=== PATIENT | female | born 1990 | race American Indian/Alaskan Native ===

== ENCOUNTER 2016-09-21 22:00 | Emergency (ER) | payer SELFPAY ==
[~2016-09-21 22:00] MED LIST: Rocuronium 50 MG/5 ML Vial IV ONE; Succinylcholine 200 MG/10 ML MDV IV ONE
[2016-09-21] MEDS ORDERED: Sodium Chloride 0.9% 1,000 ML IV ONE (22:14)
[2016-09-21] MEDS ORDERED: Naloxone 2 MG/2 ML Syringe IVPUSH ONE ×2 (22:14→22:21)
[2016-09-21 22:49] LABS: CHLORIDE,CL 112 mmol/L (101-111); SODIUM,NA 143 mmol/L (135-145)
[2016-09-21 22:52] LABS: ACETAMINOPHEN < 10
[2016-09-21] MEDS ORDERED: Midazolam 1 MG/ML 2 ML SDV ONE (22:53)
[2016-09-21] MEDS ORDERED: Potassium Chloride 10 MEQ in Premix Bag 1 BAG IV ONE (22:55)
[2016-09-21] MEDS ORDERED: Lactated Ringers 1,000 ML IV SCH (23:00)
[2016-09-21] MEDS ORDERED: MVI, Adult with Vitamin K 10 ML, Folic Acid 1 MG, Thiamine 100 MG in Lactated Ringers 1... IV SCH ×4 (23:13)
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
[2016-09-22 00:54] VITALS: BP 74/35
--- NOTE | 2016-09-22 21:59 | EKG ---
09/21/2016 - TEDDY SIMS - This 12-lead EKG shows a normal sinus rhythm with a ventricular rate of 82, normal axis, borderline prolonged QT interval. No acute ST-segment or T-wave changes. [facility] /[id number]
== END 2016-09-21 23:50 ==
LOC: DL.ED 22:00
DX: R41.82 Altered mental status, unspecified (principal); I10 Essential (primary) hypertension; F16.10 Hallucinogen abuse, uncomplicated; F10.10 Alcohol abuse, uncomplicated; F17.200 Nicotine dependence, unspecified, uncomplicated; Z88.0 Allergy status to penicillin; Z88.1 Allergy status to other antibiotic agents
CPT/HCPCS: 36415; 71010; 80053; 80305; 81001; 81025; 85025; 93005; 96365; 96367; 96374; 99291; G0480; J2310; J3411; J7030; J7120; 31500; 93010; 99285; J0330; J3490

== ENCOUNTER 2017-09-30 23:02 | Emergency (ER) | payer SELFPAY ==
[2017-09-30 23:18] VITALS: BP 104/64
[2017-09-30] MEDS ORDERED: Albuterol/Ipratropium 3.0-0.5 MG/3 ML Neb Soln NEB ONE (23:28)
[2017-09-30] MEDS ORDERED: Sodium Chloride 0.9% 1,000 ML IV ONE (23:28)
[2017-09-30] MEDS ORDERED: Acetaminophen 325 MG Tab PO ONE (23:29)
--- NOTE | 2017-09-30 23:32 | EDM.PDOC ---
ED HPI GENERAL MEDICAL PROBLEM - General Chief Complaint: Respiratory Problem Stated Complaint: BREATHING PROBLEMS NO PHONE NUMBER Time Seen by Provider: 09/30/17 23:30 Source of Information: Reports: Patient History Limitations: Reports: No Limitations - History of Present Illness INITIAL COMMENTS - FREE TEXT/NARRATIVE: 4 days h/o cough fever worse tonight with pain & sob. denies - Related Data Allergies Allergy/AdvReac Type Severity Reaction Status Date / Time amoxicillin [Amoxicillin] Allergy Unknown Rash Verified 09/30/17 23:54 penicillin G Allergy Unknown Hives Verified 09/30/17 23:54 Home Meds: Home Meds . 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 Only 1 care visit in [place] Musculoskeletal History: Reports: None Neurological History: Reports: None Psychiatric History: Reports: Addiction, Anxiety, Other (See Below) Other Psychiatric History: drug use, [facility] children [facility] Endocrine/Metabolic History: Reports: None Hematologic History: Reports: None Immunologic History: Reports: None Oncologic (Cancer) History: Reports: None Dermatologic History: Reports: Other (See Below) Other Dermatologic History: Scabs to left arm, patient states that there was been yellow drainage - Infectious Disease History Infectious Disease History: Reports: MRSA - Past Surgical History Head Surgeries/Procedures: Reports: None Female Surgical History: Reports: Section - Past Imaging History Past Imaging History: Reports: Ultrasound (01/07/2016 22 week Ultrasound EDC: 03/2016) Social & Family History - Family History HEENT: Reports: None Cardiac: Reports: Aneurysm, Heart Valve Replacement, Hypertension Respiratory: Reports: None GI: Reports: None : Reports: None OBGYN: Reports: None Musculoskeletal: Reports: None Neurological: Reports: CVA Psychiatric: Reports: None Endocrine/Metabolic: Reports: Diabetes, type II Hematologic: Reports: None Immunologic: Reports: None Dermatologic: Reports: None Oncologic: Reports: None - Tobacco Use Smoking Status *Q: Current Every Day Smoker Years of Tobacco use: 11 Packs/Tins Daily: 0.5 Used Tobacco, but Quit: No Second Hand Smoke Exposure: Yes - Caffeine Use Caffeine Use: Reports: Coffee - Alcohol Use Days Per Week of Alcohol Use: 2 Number of Drinks Per Day: 6 Total Drinks Per Week: 12 - Recreational Drug Use Recreational Drug Use: Yes Drug Use in Last 12 Months: Yes Recreational Drug Type: Reports: Methamphetamine Recreational Drug Use Frequency: Binges Recreational Drug Last Use: - - Living Situation & Occupation Living situation: Reports: Other Occupation: Unemployed ED ROS GENERAL - Review of Systems Review Of Systems: ROS reveals no pertinent complaints other than HPI. ED EXAM, GENERAL - Physical Exam Exam: See Below Exam Limited By: No Limitations General Appearance: Alert, WD/WN, Mild Distress, Other (general discomfort) Ears: Hearing Grossly Normal Throat/Mouth: Normal Voice, No Airway Compromise Head: Atraumatic Neck: Non-Tender, Full Range of Motion Respiratory/Chest: No Accessory Muscle Use, Decreased Breath Sounds, Rales, Rhonchi, Wheezing. No: Retractions, Splinting Cardiovascular: Regular Rate, Rhythm GI/Abdominal: Soft, Non-Tender Neurological: Alert, Oriented, Normal Cognition, Normal Gait, No Motor/Sensory Deficits Psychiatric: Flat Affect Skin Exam: Warm, Dry, Normal Color Lymphatic: No Adenopathy Course - Vital Signs Last Recorded V/S: Last Vital Signs Temp 39.6 C H 09/30/17 23:17 Pulse 145 H 09/30/17 23:17 Resp 24 H 09/30/17 23:17 BP 104/64 09/30/17 23:17 Pulse Ox 93 L 09/30/17 23:17 - Orders/Labs/Meds Orders: Active Orders 24 hr Category Date Time Status RT Aerosol Therapy [RC] ASDIRECTED Care 09/30/17 23:29 Active Chest 2V [CR] Urgent Exams 09/30/17 23:30 Taken CULTURE BLOOD [BC] Stat Lab 09/30/17 23:40 Received Labs: Laboratory Tests 09/30/17 09/30/17 09/30/17 Range/Units 23:40 23:40 23:40 WBC 19.6 H (5.0-10.0) 10^3/uL RBC 4.40 (4.2-5.4) 10^6/uL Hgb 12.9 (12.0-16.0) g/dL Hct 38.4 (37.0-47.0) % MCV 87.3 D (80-100) fL MCH 29.3 (27.0-34.0) pg MCHC 33.6 (33.0-35.0) g/dL Plt Count 287 (150-450) 10^3/uL Neut % (Auto) 79.6 H (42.2-75.2) % Lymph % (Auto) 10.4 L (20.5-50.1) % [place] % (Auto) 9.5 H (2-8) % Eos % (Auto) 0.3 L (1.0-3.0) % Baso % (Auto) 0.2 (0.0-1.0) % Sodium 134 L (135-145) mmol/L Potassium 3.4 L (3.6-5.0) mmol/L Chloride 106 (101-111) mmol/L Carbon Dioxide 21.0 (21.0-31.0) mmol/L Anion Gap 10.4 BUN 10 (7-18) mg/dL Creatinine 0.9 (0.6-1.3) mg/dL Est Cr Clr Drug Dosing 94.72 mL/min Estimated GFR (MDRD) > 60 BUN/Creatinine Ratio 11.11 Glucose 108 H (74-105) mg/dL Lactic Acid 1.7 (0.5-2.2) mmol/L Calcium 8.4 (8.4-10.2) mg/dl Total Bilirubin 0.8 (0.2-1.0) mg/dL AST 26 (10-42) IU/L ALT 27 (10-60) IU/L Alkaline Phosphatase 64 (42-121) IU/L Total Protein 7.8 (6.7-8.2) g/dl Albumin 3.8 (3.2-5.5) g/dl Globulin 4.0 Albumin/Globulin Ratio 0.95 Meds: Medications Discontinued Medications Generic Name Dose Route Start Last Admin Trade Name Freq PRN Reason Stop Dose Admin Acetaminophen 325 mg 09/30/17 23:29 09/30/17 23:46 Tylenol PO 09/30/17 23:30 325 mg NOW ONE Administration Albuterol/Ipratropium 3 ml 09/30/17 23:28 09/30/17 23:47 Duoneb 3.0-0.5 Mg/3 Ml NEB 09/30/17 23:29 3 ml ONETIME ONE Administration Ceftriaxone Sodium 1 gm 10/01/17 00:14 10/01/17 00:19 Rocephin IVPUSH 10/01/17 00:15 1 gm ONETIME ONE Administration Sodium Chloride 1,000 mls @ 999 mls/hr 09/30/17 23:28 09/30/17 23:45 Normal Saline IV 10/01/17 00:28 999 mls/hr .BOLUS ONE Administration Lorazepam 2 mg 10/01/17 00:22 10/01/17 00:30 Ativan IM 10/01/17 00:23 2 mg ONETIME ONE Administration - Re-Assessments/Exams Free Text/Narrative Re-Assessment/Exam: 10/01/17 00:40 results discussed with pt who is feeling better s/p IV + roceph + ativan Departure - Departure Time of Disposition: 00:40 Disposition: Home, Self-Care 01 Condition: Good Clinical Impression: Bronchospasm with bronchitis, acute - Discharge Information Instructions: Acute Bronchitis, Adult, [id number] Forms: ED Department Discharge Additional Instructions: 1) use neb 3 times daily for cough and wheeze 2) don't sleep flat at night 3) follow up at clinic rx given; keflex 250mg qid x 40 albuterol 2.5mg solution tid prn - My Orders Last 24 Hours: My Active Orders 09/30/17 23:29 RT Aerosol Therapy [RC] ASDIRECTED 09/30/17 23:30 Chest 2V [CR] Urgent 09/30/17 23:40 CULTURE BLOOD [BC] Stat - Assessment/Plan Last 24 Hours: My Active Orders 09/30/17 23:29 RT Aerosol Therapy [RC] ASDIRECTED 09/30/17 23:30 Chest 2V [CR] Urgent 09/30/17 23:40 CULTURE BLOOD [BC] Stat
[2017-10-01 00:07] LABS: CHLORIDE,CL 106 mmol/L (101-111); SODIUM,NA 134 mmol/L (135-145)
[2017-10-01] MEDS ORDERED: cefTRIAXone 1 GM Vial IVPUSH ONE (00:14)
[2017-10-01] MEDS ORDERED: LORazepam 2 MG/ML Syringe IM ONE (00:22)
== END 2017-10-01 00:49 | disposition home or self-care (01) ==
LOC: DL.ED 23:02
DX: J20.9 Acute bronchitis, unspecified (principal); I10 Essential (primary) hypertension; F17.210 Nicotine dependence, cigarettes, uncomplicated; Z88.1 Allergy status to other antibiotic agents; Z88.0 Allergy status to penicillin
CPT/HCPCS: 36415; 71046; 80053; 83605; 85025; 87040; 94640; 96361; 96372; 96374; 99284; A9270; J0696; J2060; J7030

== ENCOUNTER 2019-02-13 18:29 | Emergency (ER) | payer SELFPAY ==
[2019-02-13] MEDS ORDERED: LORazepam 2 MG/ML Syringe IVPUSH ONE ×2 (18:53→19:22)
[2019-02-13] MEDS ORDERED: Sodium Chloride 0.9% 1,000 ML IV ONE ×2 (19:23→20:50)
[2019-02-13 19:31] LABS: ANION GAP 18.9; CHLORIDE,CL 104 mmol/L (101-111); SODIUM,NA 140 mmol/L (135-145)
[2019-02-13 19:32] LABS: ACETAMINOPHEN < 10.0 ug/mL
[2019-02-13] MEDS ORDERED: diphenhydrAMINE 50 MG/ML SDV IVPUSH ONE ×2 (20:05→20:14)
[2019-02-13] MEDS ORDERED: Potassium Chloride 10 MEQ in Premix Bag 1 BAG IV ONE (20:50)
[2019-02-13] MEDS ORDERED: Haloperidol Lactate 5 MG/ML SDV IVPUSH ONE (20:50)
[2019-02-13] MEDS ORDERED: Sodium Chloride 0.9% 1,000 ML IV SCH (22:00)
[2019-02-13] MEDS ORDERED: 50% Dextrose in Water 50 ML Syringe IVPUSH ONE (22:11)
[2019-02-13 22:55] VITALS: BP 84/53; PULSE 106
--- NOTE | 2019-02-13 22:55 | EDM.PDOC ---
ED HPI GENERAL MEDICAL PROBLEM - General Chief Complaint: Drug or Alcohol Abuse Stated Complaint: POSSIBLE OVERDOSE ON METH, DELUSIONS Time Seen by Provider: 02/13/19 19:00 Source of Information: Reports: Patient, Family, RN History Limitations: Reports: Altered Mental Status, Intoxication, Uncooperative - History of Present Illness INITIAL COMMENTS - FREE TEXT/NARRATIVE: ED with family report patient using meth, patient states last use 4-5 days prior , reports regular IV user and is hep c positive. Patient has been staying with brother last couple of days. Reports patent has been extremely paranoid and hallucinating, Vomited a couple of times. Has not eaten or drank anything except few drinks today to try and calm self. Patient notes regular IV meth user and never had anything like this. Patient is actively hallucinating, paranoid, Is redirectable at times. Appears to recognize at times and verbalizethat she is seeing things but that they are not real . - Related Data Allergies Allergy/AdvReac Type Severity Reaction Status Date / Time amoxicillin [Amoxicillin] Allergy Unknown Rash Verified 02/13/19 18:40 penicillin G Allergy Unknown Hives Verified 02/13/19 18:40 Home Meds: Home Meds . 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 Only 1 care visit in [place] Musculoskeletal History: Reports: None Neurological History: Reports: None Psychiatric History: Reports: Addiction, Anxiety, Other (See Below) Other Psychiatric History: drug use, 3 children [facility] Endocrine/Metabolic History: Reports: None Hematologic History: Reports: None Immunologic History: Reports: None Oncologic (Cancer) History: Reports: None Dermatologic History: Reports: Other (See Below) Other Dermatologic History: Scabs to left arm, patient states that there was been yellow drainage - Infectious Disease History Infectious Disease History: Reports: MRSA - Past Surgical History Head Surgeries/Procedures: Reports: None Female Surgical History: Reports: Section - Past Imaging History Past Imaging History: Reports: Ultrasound (01/07/2016 22 week Ultrasound EDC: 03/2016) Social & Family History - Family History HEENT: Reports: None Cardiac: Reports: Aneurysm, Heart Valve Replacement, Hypertension Respiratory: Reports: None GI: Reports: None : Reports: None OBGYN: Reports: None Musculoskeletal: Reports: None Neurological: Reports: CVA Psychiatric: Reports: None Endocrine/Metabolic: Reports: Diabetes, type II Hematologic: Reports: None Immunologic: Reports: None Dermatologic: Reports: None Oncologic: Reports: None - Tobacco Use Smoking Status *Q: Never Smoker - Caffeine Use Caffeine Use: Reports: Coffee - Recreational Drug Use Recreational Drug Use: Yes Drug Use in Last 12 Months: Yes Recreational Drug Type: Reports: Methamphetamine - Living Situation & Occupation Living situation: Reports: Other Occupation: Unemployed ED ROS GENERAL - Review of Systems Review Of Systems: ROS reveals no pertinent complaints other than HPI. - Physical Exam Exam: See Below Exam Limited By: No Limitations General Appearance: Alert, Anxious, Moderate Distress Eye Exam: Bilateral Eye: EOMI Ears: Normal External Exam Nose: Normal Inspection Throat/Mouth: No Airway Compromise. No: Normal Lips (dry), Normal Oropharynx Head Exam: Atraumatic, Normocephalic. No: Facial Ecchymosis Neck: Normal Inspection Respiratory/Chest: No Respiratory Distress, Lungs Clear, Normal Breath Sounds Cardiovascular: Normal Peripheral Pulses, Regular Rate, Rhythm, Tachycardia GI/Abdominal: Normal Bowel Sounds, Soft, Non-Tender. No: Distended, Guarding, Abnormal Bowel Sounds Neuro Exam (Abbreviated): Alert, Inattentive. No: Oriented Back Exam: Normal Inspection, Full Range of Motion Extremities: Normal Inspection, Normal Range of Motion Skin Exam: Warm, Normal Color, Diaphoretic, Tattoo(s), Other (track ro, scattered forearms, anticubitla and forefeeet). No: Rash Course - Vital Signs Last Recorded V/S: Last Vital Signs Temp 98.0 F 02/13/19 22:50 Pulse 106 H 02/13/19 22:50 Resp 16 02/13/19 22:50 BP 84/53 L 02/13/19 22:50 Pulse Ox 99 02/13/19 22:50 - Orders/Labs/Meds Orders: Active Orders 24 hr Category Date Time Status Glucose [Blood Glucose Check, Bedside] [RC] ONETIME Care 02/13/19 22:02 Active Labs: Laboratory Tests 02/13/19 02/13/19 02/13/19 Range/Units 18:55 18:55 18:55 WBC 10.0 (5.0-10.0) 10^3/uL RBC 4.85 (4.2-5.4) 10^6/uL Hgb 14.1 (12.0-16.0) g/dL Hct 42.2 (37.0-47.0) % MCV 87.0 (80-100) fL MCH 29.1 (27.0-34.0) pg MCHC 33.4 (33.0-35.0) g/dL Plt Count 302 (150-450) 10^3/uL Neut % (Auto) 59.6 (42.2-75.2) % Lymph % (Auto) 29.9 (20.5-50.1) % [place] % (Auto) 9.3 H (2-8) % Eos % (Auto) 0.9 L (1.0-3.0) % Baso % (Auto) 0.3 (0.0-1.0) % Sodium 140 (135-145) mmol/L Potassium 2.9 L (3.6-5.0) mmol/L Chloride 104 (101-111) mmol/L Carbon Dioxide 20.0 L (21.0-31.0) mmol/L Anion Gap 18.9 BUN 29 H (7-18) mg/dL Creatinine 1.5 H (0.6-1.3) mg/dL Est Cr Clr Drug Dosing TNP Estimated GFR (MDRD) 41 BUN/Creatinine Ratio 19.33 Glucose 77 (74-105) mg/dL POC Glucose (70-105) mg/dl Calcium 9.7 (8.4-10.2) mg/dl Total Bilirubin 1.2 H (0.2-1.0) mg/dL AST 66 H (10-42) IU/L ALT 61 H (10-60) IU/L Alkaline Phosphatase 53 (42-121) IU/L Total Protein 8.8 H (6.7-8.2) g/dl Albumin 4.6 (3.2-5.5) g/dl Globulin 4.2 Albumin/Globulin Ratio 1.10 Amylase 73 (28-100) U/L Lipase 62 H (22-51) U/L HCG, Qual Negative Urine Color (YELLOW) Urine Appearance (CLEAR) Urine pH (5.0-9.0) Ur Specific [place] (1.005-1.030) Urine Protein (NEGATIVE) Urine Glucose (UA) (NEGATIVE) Urine Ketones (NEGATIVE) Urine Occult Blood (NEGATIVE) Urine Nitrite (NEGATIVE) Urine Bilirubin (NEGATIVE) Urine Urobilinogen (0.2-1.0) mg/dL Ur Leukocyte Esterase (NEGATIVE) Urine RBC /HPF Urine WBC (0-5/HPF) /HPF Ur Epithelial Cells (NOT SEEN) /HPF Urine Bacteria (0-FEW/HPF) /HPF Hyaline Casts (NOT SEEN) /LPF Urine Mucus (NOT SEEN) /LPF Salicylates < 4.0 mg/dL Urine Opiates Screen (NEGATIVE) Ur Oxycodone Screen (NEGATIVE) Urine Methadone Screen (NEGATIVE) Acetaminophen < 10.0 ug/mL Ur Barbiturates Screen (NEGATIVE) U Tricyclic Antidepress (NEGATIVE) Ur Phencyclidine Scrn (NEGATIVE) Ur Amphetamine Screen (NEGATIVE) U Methamphetamines Scrn (NEGATIVE) Urine MDMA Screen (NEGATIVE) U Benzodiazepines Scrn (NEGATIVE) Urine Cocaine Screen (NEGATIVE) U Marijuana (THC) Screen (NEGATIVE) Ethyl Alcohol 212 mg/dL 02/13/19 02/13/19 02/13/19 Range/Units 21:09 21:09 22:10 WBC (5.0-10.0) 10^3/uL RBC (4.2-5.4) 10^6/uL Hgb (12.0-16.0) g/dL Hct (37.0-47.0) % MCV (80-100) fL MCH (27.0-34.0) pg MCHC (33.0-35.0) g/dL Plt Count (150-450) 10^3/uL Neut % (Auto) (42.2-75.2) % Lymph % (Auto) (20.5-50.1) % [place] % (Auto) (2-8) % Eos % (Auto) (1.0-3.0) % Baso % (Auto) (0.0-1.0) % Sodium (135-145) mmol/L Potassium (3.6-5.0) mmol/L Chloride (101-111) mmol/L Carbon Dioxide (21.0-31.0) mmol/L Anion Gap BUN (7-18) mg/dL Creatinine (0.6-1.3) mg/dL Est Cr Clr Drug Dosing Estimated GFR (MDRD) BUN/Creatinine Ratio Glucose (74-105) mg/dL POC Glucose 57 L (70-105) mg/dl Calcium (8.4-10.2) mg/dl Total Bilirubin (0.2-1.0) mg/dL AST (10-42) IU/L ALT (10-60) IU/L Alkaline Phosphatase (42-121) IU/L Total Protein (6.7-8.2) g/dl Albumin (3.2-5.5) g/dl Globulin Albumin/Globulin Ratio Amylase (28-100) U/L Lipase (22-51) U/L HCG, Qual Urine Color Dark yellow (YELLOW) Urine Appearance Clear (CLEAR) Urine pH 5.5 (5.0-9.0) Ur Specific [place] >= 1.030 (1.005-1.030) Urine Protein 30 H (NEGATIVE) Urine Glucose (UA) Negative (NEGATIVE) Urine Ketones 40 H (NEGATIVE) Urine Occult Blood Negative (NEGATIVE) Urine Nitrite Negative (NEGATIVE) Urine Bilirubin Moderate H (NEGATIVE) Urine Urobilinogen 2.0 H (0.2-1.0) mg/dL Ur Leukocyte Esterase Negative (NEGATIVE) Urine RBC 0-5 /HPF Urine WBC 0-5 (0-5/HPF) /HPF Ur Epithelial Cells Few (NOT SEEN) /HPF Urine Bacteria Moderate H (0-FEW/HPF) /HPF Hyaline Casts Moderate H (NOT SEEN) /LPF Urine Mucus Many H (NOT SEEN) /LPF Salicylates mg/dL Urine Opiates Screen Negative (NEGATIVE) Ur Oxycodone Screen Negative (NEGATIVE) Urine Methadone Screen Negative (NEGATIVE) Acetaminophen ug/mL Ur Barbiturates Screen Negative (NEGATIVE) U Tricyclic Antidepress Negative (NEGATIVE) Ur Phencyclidine Scrn Negative (NEGATIVE) Ur Amphetamine Screen Positive H (NEGATIVE) U Methamphetamines Scrn Positive H (NEGATIVE) Urine MDMA Screen Positive H (NEGATIVE) U Benzodiazepines Scrn Negative (NEGATIVE) Urine Cocaine Screen Negative (NEGATIVE) U Marijuana (THC) Screen Negative (NEGATIVE) Ethyl Alcohol mg/dL 09/18/19 Range/Units 22:42 WBC (5.0-10.0) 10^3/uL RBC (4.2-5.4) 10^6/uL Hgb (12.0-16.0) g/dL Hct (37.0-47.0) % MCV (80-100) fL MCH (27.0-34.0) pg MCHC (33.0-35.0) g/dL Plt Count (150-450) 10^3/uL Neut % (Auto) (42.2-75.2) % Lymph % (Auto) (20.5-50.1) % [place] % (Auto) (2-8) % Eos % (Auto) (1.0-3.0) % Baso % (Auto) (0.0-1.0) % Sodium (135-145) mmol/L Potassium (3.6-5.0) mmol/L Chloride (101-111) mmol/L Carbon Dioxide (21.0-31.0) mmol/L Anion Gap BUN (7-18) mg/dL Creatinine (0.6-1.3) mg/dL Est Cr Clr Drug Dosing Estimated GFR (MDRD) BUN/Creatinine Ratio Glucose (74-105) mg/dL POC Glucose 90 (70-105) mg/dl Calcium (8.4-10.2) mg/dl Total Bilirubin (0.2-1.0) mg/dL AST (10-42) IU/L ALT (10-60) IU/L Alkaline Phosphatase (42-121) IU/L Total Protein (6.7-8.2) g/dl Albumin (3.2-5.5) g/dl Globulin Albumin/Globulin Ratio Amylase (28-100) U/L Lipase (22-51) U/L HCG, Qual Urine Color (YELLOW) Urine Appearance (CLEAR) Urine pH (5.0-9.0) Ur Specific [place] (1.005-1.030) Urine Protein (NEGATIVE) Urine Glucose (UA) (NEGATIVE) Urine Ketones (NEGATIVE) Urine Occult Blood (NEGATIVE) Urine Nitrite (NEGATIVE) Urine Bilirubin (NEGATIVE) Urine Urobilinogen (0.2-1.0) mg/dL Ur Leukocyte Esterase (NEGATIVE) Urine RBC /HPF Urine WBC (0-5/HPF) /HPF Ur Epithelial Cells (NOT SEEN) /HPF Urine Bacteria (0-FEW/HPF) /HPF Hyaline Casts (NOT SEEN) /LPF Urine Mucus (NOT SEEN) /LPF Salicylates mg/dL Urine Opiates Screen (NEGATIVE) Ur Oxycodone Screen (NEGATIVE) Urine Methadone Screen (NEGATIVE) Acetaminophen ug/mL Ur Barbiturates Screen (NEGATIVE) U Tricyclic Antidepress (NEGATIVE) Ur Phencyclidine Scrn (NEGATIVE) Ur Amphetamine Screen (NEGATIVE) U Methamphetamines Scrn (NEGATIVE) Urine MDMA Screen (NEGATIVE) U Benzodiazepines Scrn (NEGATIVE) Urine Cocaine Screen (NEGATIVE) U Marijuana (THC) Screen (NEGATIVE) Ethyl Alcohol mg/dL Meds: Medications Discontinued Medications Generic Name Dose Route Start Last Admin Trade Name Freq PRN Reason Stop Dose Admin Dextrose/Water 50 ml 02/13/19 22:11 02/13/19 22:14 Dextrose 50% In Water IVPUSH 02/13/19 22:12 50 ml ONETIME ONE Administration Diphenhydramine HCl 50 mg 02/13/19 20:05 02/13/19 22:15 Benadryl IVPUSH 02/13/19 20:06 Not Given ONETIME ONE Diphenhydramine HCl 25 mg 02/13/19 20:14 02/13/19 20:33 Benadryl IVPUSH 02/13/19 20:15 25 mg ONETIME ONE Administration Haloperidol Lactate 2 mg 02/13/19 20:50 02/13/19 21:08 Haldol IVPUSH 02/13/19 20:51 2 mg ONETIME ONE Administration Sodium Chloride 1,000 mls @ 999 mls/hr 02/13/19 19:23 02/13/19 20:30 Normal Saline IV 02/13/19 20:23 999 mls/hr .BOLUS ONE Administration Potassium Chloride 10 meq/ 100 mls @ 100 mls/hr 02/13/19 20:50 02/13/19 21:00 Premix IV 02/13/19 21:49 100 mls/hr ONETIME ONE Administration Sodium Chloride 1,000 mls @ 999 mls/hr 02/13/19 20:50 02/13/19 21:13 Normal Saline IV 02/13/19 21:50 999 mls/hr .BOLUS ONE Administration Sodium Chloride 1,000 mls @ 100 mls/hr 02/13/19 22:00 02/13/19 22:08 Normal Saline IV 100 mls/hr ASDIRECTED DONY Administration Lorazepam 1 mg 02/13/19 18:53 02/13/19 19:11 Ativan IVPUSH 02/13/19 18:54 1 mg ONETIME ONE Administration Lorazepam 2 mg 02/13/19 19:22 02/13/19 19:33 Ativan IVPUSH 02/13/19 19:23 2 mg ONETIME ONE Administration - Re-Assessments/Exams Free Text/Narrative Re-Assessment/Exam: Patient agitated thrashing on arrival paranoid, hallucinating, seeing people, animals trying to open absent dooprs, picking at air pulling up covers not present. At times able to redirect. At times will follow simple commands, Yelling. Minimal improvement with Ativan, Remains alert , startles with minimal sound ortactile stimulation. Followed with Benadryl and Haldol. Hypotension following Haldol, HR improved, O2 sats maintained greater than 95. Dozing, arouses with touch, thrashes around on bed yelling, Bp resumes mid 90"s. / systolic Departure - Departure Time of Disposition: 02:00 Disposition: DC/Tfer to Acute Hospital 02 Condition: Good Clinical Impression: Drug abuse, Methamphetamine abuse, Intoxication, Hallucination, drug-induced - Discharge Information *PRESCRIPTION DRUG MONITORING PROGRAM REVIEWED*: No *COPY OF PRESCRIPTION DRUG MONITORING REPORT IN PATIENT YASMEEN: No Referrals: PCP,Unknown [Primary Care Provider] - Forms: ED Department Discharge - My Orders Last 24 Hours: My Active Orders 02/13/19 22:02 Glucose [Blood Glucose Check, Bedside] [RC] ONETIME - Assessment/Plan Last 24 Hours: My Active Orders 02/13/19 22:02 Glucose [Blood Glucose Check, Bedside] [RC] ONETIME
== END 2019-02-13 23:05 ==
LOC: DL.ED 18:29
DX: F15.129 Other stimulant abuse with intoxication, unspecified (principal); R44.3 Hallucinations, unspecified; I10 Essential (primary) hypertension; Z88.1 Allergy status to other antibiotic agents; Z88.0 Allergy status to penicillin
CPT/HCPCS: 36415; 51701; 80053; 80305; 80320; 80329; 81001; 82150; 82962; 83690; 84703; 85025; 96361; 96365; 96375; 99285; J1200; J1630; J2060; J3480; J7030; G0480; J7060

== ENCOUNTER 2019-12-29 15:38 | Emergency (ER) | payer MEDICAID, OTHER ==
[2019-12-29 16:42] VITALS: BP 134/102; PULSE 107
--- NOTE | 2019-12-29 17:52 | CR ---
PROCEDURE INFORMATION: Exam: XR Chest, 1 View Exam date and time: 12/29/2019 5:41 PM Age: 29 years old Clinical indication: Other: Chest pain TECHNIQUE: Imaging protocol: XR of the chest Views: 1 view. COMPARISON: CR Chest 2V 09/30/2017 11:33 PM FINDINGS: Lungs: Unremarkable. No consolidation. Pleural space: Unremarkable. No pleural effusion. No pneumothorax. Heart/Mediastinum: Unremarkable. No cardiomegaly. Bones/joints: Unremarkable. IMPRESSION: No acute findings.
[2019-12-29 18:50] LABS: ANION GAP 8.8 mEq/L (7-13); CHLORIDE,CL 101 mmol/L (98-107)
[2019-12-29 18:51] LABS: SODIUM,NA 134 mmol/L (136-145)
--- NOTE | 2019-12-29 18:53 | EDM.PDOC ---
Scribed by Belia Vines 12/29/19 [id number] for Giselle Davidson MD ED HPI GENERAL MEDICAL PROBLEM - General Chief Complaint: Chest Pain Stated Complaint: CHEST HURTS HARDLEY MOVE Time Seen by Provider: 12/29/19 17:31 Source of Information: Reports: Patient, RN, RN Notes Reviewed, Other History Limitations: Reports: No Limitations - History of Present Illness INITIAL COMMENTS - FREE TEXT/NARRATIVE: Patient presents to ED by POV stating that chest hurts that started last night. It is no better than before. It is worse with moving. Patient was laying down when it started then worse overnight. She has 10/10 pain with no radiation. She feels achy. Fever a few days ago with no cough or shortness of breath. She smokes half a pack a day, last drink 1 month ago and last meth use was a few days ago. Onset: Gradual Duration: Getting Worse Location: Reports: Chest Quality: Reports: Ache Severity: Moderate Improves with: Reports: None Worsens with: Reports: None Associated Symptoms: Reports: No Other Symptoms chest Pain Score (Numeric/FACES): 9 - Related Data Allergies Allergy/AdvReac Type Severity Reaction Status Date / Time amoxicillin [Amoxicillin] Allergy Unknown Rash Verified 12/29/19 17:42 penicillin G Allergy Unknown Hives Verified 12/29/19 17:42 Home Meds: Home Meds . 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 Only 1 care visit in [place] Musculoskeletal History: Reports: None Neurological History: Reports: None Psychiatric History: Reports: Addiction, Anxiety, Other (See Below) Other Psychiatric History: drug use, 3 children in [facility] Endocrine/Metabolic History: Reports: None Hematologic History: Reports: None Immunologic History: Reports: None Oncologic (Cancer) History: Reports: None Dermatologic History: Reports: Other (See Below) Other Dermatologic History: scabs to bilateral ACs from iv drug use - Infectious Disease History Infectious Disease History: Reports: Herpes - Past Surgical History Head Surgeries/Procedures: Reports: None Female Surgical History: Reports: Section - Past Imaging History Past Imaging History: Reports: Ultrasound (01/07/2016 22 week Ultrasound EDC: 05/08/2016) Social & Family History - Family History Family Medical History: Noncontributory HEENT: Reports: None Cardiac: Reports: Aneurysm, Heart Valve Replacement, Hypertension Respiratory: Reports: None GI: Reports: None : Reports: None OBGYN: Reports: None Musculoskeletal: Reports: None Neurological: Reports: CVA Psychiatric: Reports: None Endocrine/Metabolic: Reports: Diabetes, type II Hematologic: Reports: None Immunologic: Reports: None Dermatologic: Reports: None Oncologic: Reports: None - Tobacco Use Smoking Status *Q: Current Every Day Smoker Years of Tobacco use: 15 Packs/Tins Daily: 0.5 - Caffeine Use Caffeine Use: Reports: Coffee, Soda - Recreational Drug Use Recreational Drug Use: Yes Recreational Drug Type: Reports: Methamphetamine - Living Situation & Occupation Living situation: Reports: Other Occupation: Unemployed ED ROS GENERAL - Review of Systems Review Of Systems: Comprehensive ROS is negative, except as noted in HPI. ED EXAM, GENERAL - Physical Exam Exam: See Below Exam Limited By: No Limitations General Appearance: Alert, WD/WN, No Apparent Distress Head: Atraumatic, Normocephalic Respiratory/Chest: No Respiratory Distress, Lungs Clear, Normal Breath Sounds, No Accessory Muscle Use, Chest Non-Tender Cardiovascular: Normal Peripheral Pulses, Regular Rate, Rhythm, No Edema, No Gallop, No JVD, No Murmur, No Rub GI/Abdominal: Normal Bowel Sounds, Soft, Non-Tender, No Organomegaly, No Distention, No Abnormal Bruit, No Mass Back Exam: Normal Inspection, Full Range of Motion Extremities: Normal Inspection, Normal Range of Motion, Non-Tender, Normal Capillary Refill, No Pedal Edema Neurological: Alert, Oriented, CN II-XII Intact, Normal Cognition, Normal Gait, Normal Reflexes, No Motor/Sensory Deficits Psychiatric: Anxious Skin Exam: Warm, Dry, Intact, Normal Color, No Rash Course - Vital Signs Last Recorded V/S: Last Vital Signs Temp 98.2 F 12/29/19 16:37 Pulse 107 H 12/29/19 16:37 Resp 20 12/29/19 16:37 BP 134/102 H 12/29/19 16:37 Pulse Ox 100 12/29/19 16:37 - Orders/Labs/Meds Orders: Active Orders 24 hr Category Date Time Status EKG 12 Lead [EKG Documentation Completion] [RC] URGENT Care 12/29/19 16:22 Active COMPREHENSIVE METABOLIC PN,CMP [CHEM] Stat Lab 12/29/19 17:53 Received DRUG SCREEN, URINE [URCHEM] Stat Lab 12/29/19 17:36 Ordered ETOH [ETHANOL BLOOD MEDICAL] [CHEM] Stat Lab 12/29/19 17:53 Received LIPASE [CHEM] Stat Lab 12/29/19 17:53 Received TROPONIN I [CHEM] Stat Lab 12/29/19 17:53 Received Labs: Laboratory Tests 12/29/19 Range/Units 17:53 WBC 7.7 (5.0-10.0) 10^3/uL RBC 5.01 (4.2-5.4) 10^6/uL Hgb 15.2 (12.0-16.0) g/dL Hct 44.5 (37.0-47.0) % MCV 88.8 (80-100) fL MCH 30.3 (27.0-34.0) pg MCHC 34.2 (33.0-35.0) g/dL Plt Count 192 D (150-450) 10^3/uL Neut % (Auto) 66.8 (42.2-75.2) % Lymph % (Auto) 19.8 L (20.5-50.1) % [place] % (Auto) 12.3 H (2-8) % Eos % (Auto) 0.8 L (1.0-3.0) % Baso % (Auto) 0.3 (0.0-1.0) % - Radiology Interpretation Free Text/Narrative:: Chest x-ray: No acute findings. See rad report. Departure - Departure Time of Disposition: 18:52 Disposition: Home, Self-Care 01 Condition: Good Clinical Impression: Drug use Forms: ED Department Discharge Sepsis Event Note (ED) - Evaluation Sepsis Screening Result: No Definite Risk - Focused Exam Vital Signs: Vital Signs Temp Pulse Resp BP Pulse Ox 12/29/19 16:37 98.2 F 107 H 20 134/102 H 100 - My Orders Last 24 Hours: My Active Orders 12/29/19 16:22 EKG 12 Lead [EKG Documentation Completion] [RC] URGENT 12/29/19 17:36 DRUG SCREEN, URINE [URCHEM] Stat 12/29/19 17:53 COMPREHENSIVE METABOLIC PN,CMP [CHEM] Stat ETOH [ETHANOL BLOOD MEDICAL] [CHEM] Stat LIPASE [CHEM] Stat TROPONIN I [CHEM] Stat - Assessment/Plan Last 24 Hours: My Active Orders 12/29/19 16:22 EKG 12 Lead [EKG Documentation Completion] [RC] URGENT 12/29/19 17:36 DRUG SCREEN, URINE [URCHEM] Stat 12/29/19 17:53 COMPREHENSIVE METABOLIC PN,CMP [CHEM] Stat ETOH [ETHANOL BLOOD MEDICAL] [CHEM] Stat LIPASE [CHEM] Stat TROPONIN I [CHEM] Stat I have read and agree with the documentation that has been completed regarding this visit. By signing this record, I attest that the documentation was completed in my physical presence and is an accurate record of the encounter.
== END 2019-12-29 19:20 | disposition home or self-care (01) ==
LOC: DL.ED 15:38
DX: F19.90 Other psychoactive substance use, unspecified, uncomplicated (principal); R07.9 Chest pain, unspecified; I10 Essential (primary) hypertension; F17.210 Nicotine dependence, cigarettes, uncomplicated; Z88.0 Allergy status to penicillin; Z88.1 Allergy status to other antibiotic agents; Z98.890 Other specified postprocedural states
CPT/HCPCS: 36415; 71045; 80053; 80307; 83690; 84484; 85025; 93005; 99285-25

== ENCOUNTER 2019-12-30 13:19 | Observation (INO) | payer MEDICAID ==
--- NOTE | 2019-12-30 13:32 | EDM.PDOC ---
ED HPI GENERAL MEDICAL PROBLEM - General Chief Complaint: Chest Pain Stated Complaint: CHEST HURTS Time Seen by Provider: 12/30/19 13:28 Source of Information: Reports: Patient, Old Records, RN, RN Notes Reviewed History Limitations: Reports: Intoxication - History of Present Illness INITIAL COMMENTS - FREE TEXT/NARRATIVE: Pt presents to ER from home by POV with c/o of chest pain x3 days. Pt was seen here yesterday for the same complaint, and was d/c'd home by Dr. Davidson. Today pt states that she thinks she could have a blood clot in her lungs and wants to be recheck. Pt states she has been feeling short of breath and feverish. Denies N/V, cough, or sore throat. Duration: Day(s): (3), Constant Location: Reports: Chest Quality: Reports: Ache, Same as Previous Episode Severity: Moderate Improves with: Reports: None Worsens with: Reports: None Associated Symptoms: Reports: No Other Symptoms Left Chest Pain Score (Numeric/FACES): 10 - Related Data Allergies Allergy/AdvReac Type Severity Reaction Status Date / Time amoxicillin [Amoxicillin] Allergy Unknown Rash Verified 12/30/19 13:33 penicillin G Allergy Unknown Hives Verified 12/30/19 13:33 Home Meds: Home Meds . [No Known Home Meds] 05/27/16 [History] Past Medical History HEENT History: Reports: None Cardiovascular History: Reports: Hypertension Other Cardiovascular History: hypertension with last Respiratory History: Reports: None Gastrointestinal History: Reports: None Genitourinary History: Reports: STD Other Genitourinary History: genital herpes CENTER MANAGER History: Reports: Other CENTER MANAGER History: EDC: 05/08/2016 by a 22 week Ultrasound on 01/07/2016 EGA: 39 weeks gestation. 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 - Infectious Disease History Infectious Disease History: Reports: Herpes - Past Surgical History Head Surgeries/Procedures: Reports: None Female Surgical History: Reports: Section - Past Imaging History Past Imaging History: Reports: Ultrasound (01/07/2016 22 week Ultrasound EDC: 05/08/2016) Social & Family History - Family History Family Medical History: Noncontributory HEENT: Reports: None Cardiac: Reports: Aneurysm, Heart Valve Replacement, Hypertension Respiratory: Reports: None GI: Reports: None : Reports: None OBGYN: Reports: None Musculoskeletal: Reports: None Neurological: Reports: CVA Psychiatric: Reports: None Endocrine/Metabolic: Reports: Diabetes, type II Hematologic: Reports: None Immunologic: Reports: None Dermatologic: Reports: None Oncologic: Reports: None - Caffeine Use Caffeine Use: Reports: Coffee, Soda - Living Situation & Occupation Living situation: Reports: Other Occupation: Unemployed ED ROS GENERAL - Review of Systems Review Of Systems: Comprehensive ROS is negative, except as noted in HPI. ED EXAM, GENERAL - Physical Exam Exam: See Below Exam Limited By: Intoxication General Appearance: Alert, WD/WN, No Apparent Distress, Anxious Eye Exam: Bilateral Eye: Normal Inspection Nose: Normal Inspection, Normal Mucosa, No Blood Throat/Mouth: Normal Inspection, Normal Lips, Normal Voice, No Airway Compromise Head: Atraumatic, Normocephalic Neck: Normal Inspection, Supple, Non-Tender, Full Range of Motion Respiratory/Chest: No Respiratory Distress, Lungs Clear, Normal Breath Sounds, No Accessory Muscle Use, Chest Non-Tender. No: Crackles, Rales, Rhonchi, Wheezing, Stridor Cardiovascular: Normal Peripheral Pulses, Regular Rate, Rhythm, No Edema, Tachycardia GI/Abdominal: Normal Bowel Sounds, Soft, Non-Tender, No Organomegaly, No Distention, No Abnormal Bruit, No Mass Back Exam: Normal Inspection Extremities: Normal Inspection, Normal Range of Motion, Non-Tender, Normal Capillary Refill, No Pedal Edema Neurological: Alert, Oriented, CN II-XII Intact, Normal Cognition, Normal Gait, No Motor/Sensory Deficits, Other (Appear to be under the influence of a drug or alcohol.) Psychiatric: Anxious Skin Exam: Warm, Dry, Intact, Normal Color, No Rash EKG INTERPRETATION EKG Date: 12/30/19 Time: 13:33 Rhythm: Other (Sinus tach with a single PVC) Rate (Beats/Min): 101 [place]: Normal P-Wave: Present QRS: Normal ST-T: Normal QT: Normal Comparison: No Change Course - Vital Signs Last Recorded V/S: Last Vital Signs Temp 99.4 F 12/30/19 13:29 Pulse 120 H 12/30/19 13:29 Resp 16 12/30/19 13:29 BP 125/99 H 12/30/19 13:29 Pulse Ox 100 12/30/19 13:29 - Orders/Labs/Meds Orders: Active Orders 24 hr Category Date Time Status EKG 12 Lead [EKG Documentation Completion] [RC] STAT Care 12/30/19 13:27 Active CULTURE URINE [RM] Stat Lab 12/30/19 16:15 Received Sodium Chloride 0.9% [Normal Saline] 1,000 ml Med 12/30/19 16:41 Active IV .BOLUS Medication Orders Sodium Chloride (Normal Saline) 1,000 mls @ 999 mls/hr IV .BOLUS ONE Stop: 12/30/19 17:41 Labs: Laboratory Tests 12/30/19 12/30/19 12/30/19 Range/Units 13:46 13:46 13:46 WBC 15.8 H (5.0-10.0) 10^3/uL RBC 5.09 (4.2-5.4) 10^6/uL Hgb 15.4 (12.0-16.0) g/dL Hct 44.8 (37.0-47.0) % MCV 88.0 (80-100) fL MCH 30.3 (27.0-34.0) pg MCHC 34.4 (33.0-35.0) g/dL Plt Count 194 (150-450) 10^3/uL Neut % (Auto) 88.2 H (42.2-75.2) % Lymph % (Auto) 5.3 L (20.5-50.1) % [place] % (Auto) 6.2 (2-8) % Eos % (Auto) 0.1 L (1.0-3.0) % Baso % (Auto) 0.2 (0.0-1.0) % D-Dimer, Quantitative 1320 H (0-400) ng/mL Sodium 130 L (136-145) mmol/L Potassium 4.1 (3.5-5.1) mmol/L Chloride 97 L (98-107) mmol/L Carbon Dioxide 25 (21-32) mmol/L Anion Gap 12.1 (7-13) mEq/L BUN 7 (7-18) mg/dL Creatinine 0.80 (0.55-1.02) mg/dL Est Cr Clr Drug Dosing 107.46 mL/min Estimated GFR (MDRD) > 60 BUN/Creatinine Ratio 8.8 (No establ ref range) Glucose 109 H (74-99) mg/dL Calcium 8.7 (8.5-10.1) mg/dL Total Bilirubin 0.8 (0.2-1.0) mg/dL AST 54 H (15-37) U/L ALT 65 H (14-59) U/L Alkaline Phosphatase 54 (46-116) U/L Troponin I < 0.017 (0.000-0.056) ng/mL Total Protein 8.7 H (6.4-8.2) g/dL Albumin 3.6 (3.4-5.0) g/dL Globulin 5.1 Albumin/Globulin Ratio 0.7 Urine Color (YELLOW) Urine Appearance (CLEAR) Urine pH (5.0-9.0) Ur Specific [place] (1.005-1.030) Urine Protein (NEGATIVE) Urine Glucose (UA) (NEGATIVE) Urine Ketones (NEGATIVE) Urine Occult Blood (NEGATIVE) Urine Nitrite (NEGATIVE) Urine Bilirubin (NEGATIVE) Urine Urobilinogen (0.2-1.0) mg/dL Ur Leukocyte Esterase (NEGATIVE) Urine RBC /HPF Urine WBC (0-5/HPF) /HPF Ur Epithelial Cells (NOT SEEN) /HPF Amorphous Sediment (NOT SEEN) /HPF Urine Bacteria (0-FEW/HPF) /HPF Urine Mucus (NOT SEEN) /LPF Urine HCG, Qual Urine Opiates Screen (NEGATIVE) Ur Oxycodone Screen (NEGATIVE) Urine Methadone Screen (NEGATIVE) Ur Barbiturates Screen (NEGATIVE) U Tricyclic Antidepress (NEGATIVE) Ur Phencyclidine Scrn (NEGATIVE) Ur Amphetamine Screen (NEGATIVE) U Methamphetamines Scrn (NEGATIVE) Urine MDMA Screen (NEGATIVE) U Benzodiazepines Scrn (NEGATIVE) Urine Cocaine Screen (NEGATIVE) U Marijuana (THC) Screen (NEGATIVE) Ethyl Alcohol < 3 (0) mg/dL COVID-19 (JEFF) (NEGATIVE) 12/30/19 12/30/19 12/30/19 Range/Units 13:49 16:10 16:15 WBC (5.0-10.0) 10^3/uL RBC (4.2-5.4) 10^6/uL Hgb (12.0-16.0) g/dL Hct (37.0-47.0) % MCV (80-100) fL MCH (27.0-34.0) pg MCHC (33.0-35.0) g/dL Plt Count (150-450) 10^3/uL Neut % (Auto) (42.2-75.2) % Lymph % (Auto) (20.5-50.1) % [place] % (Auto) (2-8) % Eos % (Auto) (1.0-3.0) % Baso % (Auto) (0.0-1.0) % D-Dimer, Quantitative (0-400) ng/mL Sodium (136-145) mmol/L Potassium (3.5-5.1) mmol/L Chloride (98-107) mmol/L Carbon Dioxide (21-32) mmol/L Anion Gap (7-13) mEq/L BUN (7-18) mg/dL Creatinine (0.55-1.02) mg/dL Est Cr Clr Drug Dosing mL/min Estimated GFR (MDRD) BUN/Creatinine Ratio (No establ ref range) Glucose (74-99) mg/dL Calcium (8.5-10.1) mg/dL Total Bilirubin (0.2-1.0) mg/dL AST (15-37) U/L ALT (14-59) U/L Alkaline Phosphatase (46-116) U/L Troponin I (0.000-0.056) ng/mL Total Protein (6.4-8.2) g/dL Albumin (3.4-5.0) g/dL Globulin Albumin/Globulin Ratio Urine Color (YELLOW) Urine Appearance (CLEAR) Urine pH (5.0-9.0) Ur Specific [place] (1.005-1.030) Urine Protein (NEGATIVE) Urine Glucose (UA) (NEGATIVE) Urine Ketones (NEGATIVE) Urine Occult Blood (NEGATIVE) Urine Nitrite (NEGATIVE) Urine Bilirubin (NEGATIVE) Urine Urobilinogen (0.2-1.0) mg/dL Ur Leukocyte Esterase (NEGATIVE) Urine RBC /HPF Urine WBC (0-5/HPF) /HPF Ur Epithelial Cells (NOT SEEN) /HPF Amorphous Sediment (NOT SEEN) /HPF Urine Bacteria (0-FEW/HPF) /HPF Urine Mucus (NOT SEEN) /LPF Urine HCG, Qual Negative Urine Opiates Screen Negative (NEGATIVE) Ur Oxycodone Screen Negative (NEGATIVE) Urine Methadone Screen Negative (NEGATIVE) Ur Barbiturates Screen Negative (NEGATIVE) U Tricyclic Antidepress Negative (NEGATIVE) Ur Phencyclidine Scrn Negative (NEGATIVE) Ur Amphetamine Screen Positive H (NEGATIVE) U Methamphetamines Scrn Positive H (NEGATIVE) Urine MDMA Screen Positive H (NEGATIVE) U Benzodiazepines Scrn Negative (NEGATIVE) Urine Cocaine Screen Negative (NEGATIVE) U Marijuana (THC) Screen Negative (NEGATIVE) Ethyl Alcohol (0) mg/dL COVID-19 (JEFF) Negative (NEGATIVE) 12/30/19 Range/Units 16:15 WBC (5.0-10.0) 10^3/uL RBC (4.2-5.4) 10^6/uL Hgb (12.0-16.0) g/dL Hct (37.0-47.0) % MCV (80-100) fL MCH (27.0-34.0) pg MCHC (33.0-35.0) g/dL Plt Count (150-450) 10^3/uL Neut % (Auto) (42.2-75.2) % Lymph % (Auto) (20.5-50.1) % [place] % (Auto) (2-8) % Eos % (Auto) (1.0-3.0) % Baso % (Auto) (0.0-1.0) % D-Dimer, Quantitative (0-400) ng/mL Sodium (136-145) mmol/L Potassium (3.5-5.1) mmol/L Chloride (98-107) mmol/L Carbon Dioxide (21-32) mmol/L Anion Gap (7-13) mEq/L BUN (7-18) mg/dL Creatinine (0.55-1.02) mg/dL Est Cr Clr Drug Dosing mL/min Estimated GFR (MDRD) BUN/Creatinine Ratio (No establ ref range) Glucose (74-99) mg/dL Calcium (8.5-10.1) mg/dL Total Bilirubin (0.2-1.0) mg/dL AST (15-37) U/L ALT (14-59) U/L Alkaline Phosphatase (46-116) U/L Troponin I (0.000-0.056) ng/mL Total Protein (6.4-8.2) g/dL Albumin (3.4-5.0) g/dL Globulin Albumin/Globulin Ratio Urine Color Yellow (YELLOW) Urine Appearance Slightly cloudy (CLEAR) Urine pH 7.0 (5.0-9.0) Ur Specific [place] 1.025 (1.005-1.030) Urine Protein Negative (NEGATIVE) Urine Glucose (UA) Negative (NEGATIVE) Urine Ketones Negative (NEGATIVE) Urine Occult Blood Trace-intact H (NEGATIVE) Urine Nitrite Positive H (NEGATIVE) Urine Bilirubin Negative (NEGATIVE) Urine Urobilinogen 0.2 (0.2-1.0) mg/dL Ur Leukocyte Esterase Negative (NEGATIVE) Urine RBC 5-10 H /HPF Urine WBC 5-10 H (0-5/HPF) /HPF Ur Epithelial Cells Few (NOT SEEN) /HPF Amorphous Sediment Moderate H (NOT SEEN) /HPF Urine Bacteria Few (0-FEW/HPF) /HPF Urine Mucus Few H (NOT SEEN) /LPF Urine HCG, Qual Urine Opiates Screen (NEGATIVE) Ur Oxycodone Screen (NEGATIVE) Urine Methadone Screen (NEGATIVE) Ur Barbiturates Screen (NEGATIVE) U Tricyclic Antidepress (NEGATIVE) Ur Phencyclidine Scrn (NEGATIVE) Ur Amphetamine Screen (NEGATIVE) U Methamphetamines Scrn (NEGATIVE) Urine MDMA Screen (NEGATIVE) U Benzodiazepines Scrn (NEGATIVE) Urine Cocaine Screen (NEGATIVE) U Marijuana (THC) Screen (NEGATIVE) Ethyl Alcohol (0) mg/dL COVID-19 (JEFF) (NEGATIVE) Meds: Medications Generic Name Dose Route Start Last Admin Trade Name Freq PRN Reason Stop Dose Admin Sodium Chloride 1,000 mls @ 999 mls/hr 12/30/19 16:41 Normal Saline IV 12/30/19 17:41 .BOLUS ONE Discontinued Medications Generic Name Dose Route Start Last Admin Trade Name Freq PRN Reason Stop Dose Admin Diphenhydramine HCl 25 mg 12/30/19 14:55 12/30/19 15:22 Benadryl IVPUSH 12/30/19 14:56 25 mg ONETIME ONE Administration Sodium Chloride 1,000 mls @ 999 mls/hr 12/30/19 14:53 12/30/19 15:22 Normal Saline IV 12/30/19 15:53 999 mls/hr .BOLUS ONE Administration Vancomycin HCl 1 gm/ Sodium 250 mls @ 167 mls/hr 12/30/19 14:53 12/30/19 15:22 Chloride IV 12/30/19 16:22 167 mls/hr ONETIME ONE Administration Iopamidol 100 ml 12/30/19 14:51 12/30/19 15:17 Isovue-370 (76%) IVPUSH 12/30/19 14:52 68 ml ONETIME ONE Administration - Radiology Interpretation Free Text/Narrative:: CT Chest w/contrast: No sign of pneumonia, PE, lung mass, or cardiac abnormality. Cholelithiasis. See Rad. report. - Re-Assessments/Exams Free Text/Narrative Re-Assessment/Exam: 12/30/19 16:47 Pyelonephritis vs IV drug related illness, mild altered mental status. Plan to admit pt to obs. to Dr. Agee. Departure - Departure Time of Disposition: 16:48 (admitted to Dr. Agee) Disposition: Refer to Observation Condition: Fair, Undetermined Clinical Impression: Pyelonephritis, Methamphetamine abuse, MDMA abuse Altered mental status Qualifiers: Altered mental status type: somnolence Qualified Code(s): R40.0 - Somnolence Forms: ED Department Discharge Sepsis Event Note (ED) - Focused Exam Vital Signs: Vital Signs Temp Pulse Resp BP Pulse Ox 12/30/19 13:29 99.4 F 120 H 16 125/99 H 100 - My Orders Last 24 Hours: My Active Orders 12/30/19 13:27 EKG 12 Lead [EKG Documentation Completion] [RC] STAT 12/30/19 16:15 CULTURE URINE [RM] Stat 12/30/19 16:41 Sodium Chloride 0.9% [Normal Saline] 1,000 ml IV .BOLUS - Assessment/Plan Last 24 Hours: My Active Orders 12/30/19 13:27 EKG 12 Lead [EKG Documentation Completion] [RC] STAT 12/30/19 16:15 CULTURE URINE [RM] Stat 12/30/19 16:41 Sodium Chloride 0.9% [Normal Saline] 1,000 ml IV .BOLUS
[2019-12-30 14:14] LABS: ANION GAP 12.1 mEq/L (7-13); CHLORIDE,CL 97 mmol/L (98-107); SODIUM,NA 130 mmol/L (136-145)
[2019-12-30] MEDS ORDERED: Iopamidol 755 Mg/ML 100 ML Bottle IVPUSH ONE (14:51)
[2019-12-30] MEDS ORDERED: Sodium Chloride 0.9% 1,000 ML IV ONE ×2 (14:53→16:41)
[2019-12-30] MEDS ORDERED: diphenhydrAMINE 50 MG/ML SDV IVPUSH ONE (14:55)
--- NOTE | 2019-12-30 15:58 | CT ---
EXAMINATION: Chest w Cont SEX: Female AGE: 29 years CLINICAL HISTORY: 29-year-old 180 pound female smoker with Chest pain (serum D dimer> 1300). Scan technique: Volume acquisition of data from the chest (bony thorax, lungs and mediastinum) obtained during the intravenous administration 68 mL non-ionic 370 contrast via injector (5 cc/s) while patient was lying supine on the Siemens multi slice scanner [place], [place]. All data archived in the PACS system for storage, reformatting axial/sagittal coronal planes and study (lung/mediastinal windows). Interpretation: Negative chest exam. Cholelithiasis. 1. No intraluminal filling defect or thrombus identified in the pulmonary artery circulation. 2. No abnormal areas of focal lobar oligemia or peripheral pleural-based infiltrate/infarcts. 3. No infiltrate, atelectasis or collapse. 4. Normal cardiac silhouette. No pericardial effusion. No pulmonary vascular congestion, cephalization of flow, alveolar edema or dependent pleural effusion. 5. No lung mass or significant hilar/mediastinal lymphadenopathy. 6. No pneumothorax or pneumomediastinum. 7. Decreased anterior height several vertebral bodies around the thoracolumbar juncture with associated marginal spondylosis suggesting old hyperflexion compression trauma. No acute fracture or dislocation. 8. Multiple intraluminal densities gallbladder (RUQ) consistent with noncalcified GALLSTONES. CONCLUSION: Cholelithiasis. No sign of heart disease, lung mass, pneumonia or pulmonary embolism.
[2019-12-30] MEDS ORDERED: Morphine 2 MG/ML SYRINGE IVPUSH PRN (17:52)
[2019-12-30] MEDS ORDERED: Sodium Chloride 0.9% 10 ML Syringe FLUSH PRN (17:52)
[2019-12-30] MEDS ORDERED: Ondansetron 4 MG/2 ML SDV IVPUSH PRN (17:52)
[2019-12-30] MEDS ORDERED: Zolpidem 5 MG Tab PO PRN (17:52)
[2019-12-30] MEDS ORDERED: Ondansetron 4 MG Tab.DIS PO PRN (17:52)
[2019-12-30] MEDS ORDERED: Albuterol 0.083% 2.5 MG/3 ML Neb Soln NEB PRN (17:52)
[2019-12-30] MEDS ORDERED: Docusate Sodium 100 MG Cap PO PRN (17:52)
[2019-12-30] MEDS ORDERED: Levofloxacin/Dextrose 5%-Water 750 MG in Premix Bag 1 BAG IV SCH (18:00)
--- NOTE | 2019-12-30 18:24 | PCM.HP ---
H&P History of Present Illness - General Date of Service: 12/30/19 Admit Problem/Dx: Admission Diagnosis/Problem Admission Diagnosis/Problem Pyelonephritis Source of Information: Patient, Provider - History of Present Illness Initial Comments - Free Text/Narative: 29-year-old lady with a history of meth use. Limited information is available the patient is not cooperating, not willing to give history. Presented with chest pain, shortness of breath, fever. Was in the emergency room the day prior to admission as well. In the emergency room there was also concern that the patient is somewhat lethargic, not cooperating. Chest pain is sharp started 2 days prior to admission, worse with moving. Feeling achy. Fever noted. No abdominal pain. No diarrhea. Left Chest Pain Score (Numeric/FACES): 10 - Related Data Allergies/Adverse Reactions: Allergies Allergy/AdvReac Type Severity Reaction Status Date / Time amoxicillin [Amoxicillin] Allergy Unknown Rash Verified 12/30/19 13:33 penicillin G Allergy Unknown Hives Verified 12/30/19 13:33 Home Medications: Home Meds . [No Known Home Meds] 05/27/16 [History] Past Medical History HEENT History: Reports: None Cardiovascular History: Reports: Hypertension Other Cardiovascular History: hypertension with last Respiratory History: Reports: None Gastrointestinal History: Reports: None Genitourinary History: Reports: STD Other Genitourinary History: genital herpes [employer] History: Reports: Other OB/BYN History: EDC: 05/08/2016 by a 22 week Ultrasound on 01/07/2016 EGA: 39 weeks gestation. 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 - Infectious Disease History Infectious Disease History: Reports: Herpes - Past Surgical History Head Surgeries/Procedures: Reports: None Female Surgical History: Reports: Section - Past Imaging History Past Imaging History: Reports: Ultrasound (01/07/2016 22 week Ultrasound EDC: 05/08/2016) Social & Family History - Family History Family Medical History: Noncontributory HEENT: Reports: None Cardiac: Reports: Aneurysm, Heart Valve Replacement, Hypertension Respiratory: Reports: None GI: Reports: None : Reports: None OBGYN: Reports: None Musculoskeletal: Reports: None Neurological: Reports: CVA Psychiatric: Reports: None Endocrine/Metabolic: Reports: Diabetes, type II Hematologic: Reports: None Immunologic: Reports: None Dermatologic: Reports: None Oncologic: Reports: None - Tobacco Use Smoking Status *Q: Current Every Day Smoker Years of Tobacco use: 10 Packs/Tins Daily: 0.5 Second Hand Smoke Exposure: Yes - Caffeine Use Caffeine Use: Reports: Soda - Recreational Drug Use Recreational Drug Use: Yes Recreational Drug Type: Reports: Methamphetamine Recreational Drug Use Frequency: Weekly - Living Situation & Occupation Living situation: Reports: Other Occupation: Unemployed H&P Review of Systems - Review of Systems: Review Of Systems: See Below General: Reports: Fever, Malaise Pulmonary: Reports: Shortness of Breath. Denies: Wheezing Cardiovascular: Reports: Chest Pain (Left sided lower chest) Gastrointestinal: Denies: Abdominal Pain Psychiatric: Denies: Confusion Exam - Exam Exam: See Below - Vital Signs Vital Signs: Last Vital Signs Temp 103.4 F H 12/30/19 17:19 Pulse 110 H 12/30/19 17:19 Resp 20 12/30/19 17:19 BP 144/97 H 12/30/19 17:19 Pulse Ox 99 12/30/19 17:19 Weight: 183 lb - Exam General: Alert, Oriented, Other (Withdrawn, not cooperating) Neck: Supple Lungs: Clear to Auscultation, Normal Respiratory Effort Cardiovascular: Regular Rate, Regular Rhythm, Other (Left-sided chest pain non- reproducible) GI/Abdominal Exam: Normal Bowel Sounds, Soft, Non-Tender. No: Distended Extremities: No Pedal Edema - Patient Data Lab Results Last 24 hrs: Laboratory Results - last 24 hr 12/30/19 12/30/19 12/30/19 Range/Units 13:46 13:46 13:46 WBC 15.8 H (5.0-10.0) 10^3/uL RBC 5.09 (4.2-5.4) 10^6/uL Hgb 15.4 (12.0-16.0) g/dL Hct 44.8 (37.0-47.0) % MCV 88.0 (80-100) fL MCH 30.3 (27.0-34.0) pg MCHC 34.4 (33.0-35.0) g/dL Plt Count 194 (150-450) 10^3/uL Neut % (Auto) 88.2 H (42.2-75.2) % Lymph % (Auto) 5.3 L (20.5-50.1) % [place] % (Auto) 6.2 (2-8) % Eos % (Auto) 0.1 L (1.0-3.0) % Baso % (Auto) 0.2 (0.0-1.0) % D-Dimer, Quantitative 1320 H (0-400) ng/mL Sodium 130 L (136-145) mmol/L Potassium 4.1 (3.5-5.1) mmol/L Chloride 97 L (98-107) mmol/L Carbon Dioxide 25 (21-32) mmol/L Anion Gap 12.1 (7-13) mEq/L BUN 7 (7-18) mg/dL Creatinine 0.80 (0.55-1.02) mg/dL Est Cr Clr Drug Dosing 107.46 mL/min Estimated GFR (MDRD) > 60 BUN/Creatinine Ratio 8.8 (No establ ref range) Glucose 109 H (74-99) mg/dL Calcium 8.7 (8.5-10.1) mg/dL Total Bilirubin 0.8 (0.2-1.0) mg/dL AST 54 H (15-37) U/L ALT 65 H (14-59) U/L Alkaline Phosphatase 54 (46-116) U/L Troponin I < 0.017 (0.000-0.056) ng/mL Total Protein 8.7 H (6.4-8.2) g/dL Albumin 3.6 (3.4-5.0) g/dL Globulin 5.1 Albumin/Globulin Ratio 0.7 Urine Color (YELLOW) Urine Appearance (CLEAR) Urine pH (5.0-9.0) Ur Specific [place] (1.005-1.030) Urine Protein (NEGATIVE) Urine Glucose (UA) (NEGATIVE) Urine Ketones (NEGATIVE) Urine Occult Blood (NEGATIVE) Urine Nitrite (NEGATIVE) Urine Bilirubin (NEGATIVE) Urine Urobilinogen (0.2-1.0) mg/dL Ur Leukocyte Esterase (NEGATIVE) Urine RBC /HPF Urine WBC (0-5/HPF) /HPF Ur Epithelial Cells (NOT SEEN) /HPF Amorphous Sediment (NOT SEEN) /HPF Urine Bacteria (0-FEW/HPF) /HPF Urine Mucus (NOT SEEN) /LPF Urine HCG, Qual Urine Opiates Screen (NEGATIVE) Ur Oxycodone Screen (NEGATIVE) Urine Methadone Screen (NEGATIVE) Ur Barbiturates Screen (NEGATIVE) U Tricyclic Antidepress (NEGATIVE) Ur Phencyclidine Scrn (NEGATIVE) Ur Amphetamine Screen (NEGATIVE) U Methamphetamines Scrn (NEGATIVE) Urine MDMA Screen (NEGATIVE) U Benzodiazepines Scrn (NEGATIVE) Urine Cocaine Screen (NEGATIVE) U Marijuana (THC) Screen (NEGATIVE) Ethyl Alcohol < 3 (0) mg/dL COVID-19 (JEFF) (NEGATIVE) 12/30/19 12/30/19 12/30/19 Range/Units 13:49 16:10 16:15 WBC (5.0-10.0) 10^3/uL RBC (4.2-5.4) 10^6/uL Hgb (12.0-16.0) g/dL Hct (37.0-47.0) % MCV (80-100) fL MCH (27.0-34.0) pg MCHC (33.0-35.0) g/dL Plt Count (150-450) 10^3/uL Neut % (Auto) (42.2-75.2) % Lymph % (Auto) (20.5-50.1) % [place] % (Auto) (2-8) % Eos % (Auto) (1.0-3.0) % Baso % (Auto) (0.0-1.0) % D-Dimer, Quantitative (0-400) ng/mL Sodium (136-145) mmol/L Potassium (3.5-5.1) mmol/L Chloride (98-107) mmol/L Carbon Dioxide (21-32) mmol/L Anion Gap (7-13) mEq/L BUN (7-18) mg/dL Creatinine (0.55-1.02) mg/dL Est Cr Clr Drug Dosing mL/min Estimated GFR (MDRD) BUN/Creatinine Ratio (No establ ref range) Glucose (74-99) mg/dL Calcium (8.5-10.1) mg/dL Total Bilirubin (0.2-1.0) mg/dL AST (15-37) U/L ALT (14-59) U/L Alkaline Phosphatase (46-116) U/L Troponin I (0.000-0.056) ng/mL Total Protein (6.4-8.2) g/dL Albumin (3.4-5.0) g/dL Globulin Albumin/Globulin Ratio Urine Color (YELLOW) Urine Appearance (CLEAR) Urine pH (5.0-9.0) Ur Specific [place] (1.005-1.030) Urine Protein (NEGATIVE) Urine Glucose (UA) (NEGATIVE) Urine Ketones (NEGATIVE) Urine Occult Blood (NEGATIVE) Urine Nitrite (NEGATIVE) Urine Bilirubin (NEGATIVE) Urine Urobilinogen (0.2-1.0) mg/dL Ur Leukocyte Esterase (NEGATIVE) Urine RBC /HPF Urine WBC (0-5/HPF) /HPF Ur Epithelial Cells (NOT SEEN) /HPF Amorphous Sediment (NOT SEEN) /HPF Urine Bacteria (0-FEW/HPF) /HPF Urine Mucus (NOT SEEN) /LPF Urine HCG, Qual Negative Urine Opiates Screen Negative (NEGATIVE) Ur Oxycodone Screen Negative (NEGATIVE) Urine Methadone Screen Negative (NEGATIVE) Ur Barbiturates Screen Negative (NEGATIVE) U Tricyclic Antidepress Negative (NEGATIVE) Ur Phencyclidine Scrn Negative (NEGATIVE) Ur Amphetamine Screen Positive H (NEGATIVE) U Methamphetamines Scrn Positive H (NEGATIVE) Urine MDMA Screen Positive H (NEGATIVE) U Benzodiazepines Scrn Negative (NEGATIVE) Urine Cocaine Screen Negative (NEGATIVE) U Marijuana (THC) Screen Negative (NEGATIVE) Ethyl Alcohol (0) mg/dL COVID-19 (JEFF) Negative (NEGATIVE) 12/30/19 Range/Units 16:15 WBC (5.0-10.0) 10^3/uL RBC (4.2-5.4) 10^6/uL Hgb (12.0-16.0) g/dL Hct (37.0-47.0) % MCV (80-100) fL MCH (27.0-34.0) pg MCHC (33.0-35.0) g/dL Plt Count (150-450) 10^3/uL Neut % (Auto) (42.2-75.2) % Lymph % (Auto) (20.5-50.1) % [place] % (Auto) (2-8) % Eos % (Auto) (1.0-3.0) % Baso % (Auto) (0.0-1.0) % D-Dimer, Quantitative (0-400) ng/mL Sodium (136-145) mmol/L Potassium (3.5-5.1) mmol/L Chloride (98-107) mmol/L Carbon Dioxide (21-32) mmol/L Anion Gap (7-13) mEq/L BUN (7-18) mg/dL Creatinine (0.55-1.02) mg/dL Est Cr Clr Drug Dosing mL/min Estimated GFR (MDRD) BUN/Creatinine Ratio (No establ ref range) Glucose (74-99) mg/dL Calcium (8.5-10.1) mg/dL Total Bilirubin (0.2-1.0) mg/dL AST (15-37) U/L ALT (14-59) U/L Alkaline Phosphatase (46-116) U/L Troponin I (0.000-0.056) ng/mL Total Protein (6.4-8.2) g/dL Albumin (3.4-5.0) g/dL Globulin Albumin/Globulin Ratio Urine Color Yellow (YELLOW) Urine Appearance Slightly cloudy (CLEAR) Urine pH 7.0 (5.0-9.0) Ur Specific [place] 1.025 (1.005-1.030) Urine Protein Negative (NEGATIVE) Urine Glucose (UA) Negative (NEGATIVE) Urine Ketones Negative (NEGATIVE) Urine Occult Blood Trace-intact H (NEGATIVE) Urine Nitrite Positive H (NEGATIVE) Urine Bilirubin Negative (NEGATIVE) Urine Urobilinogen 0.2 (0.2-1.0) mg/dL Ur Leukocyte Esterase Negative (NEGATIVE) Urine RBC 5-10 H /HPF Urine WBC 5-10 H (0-5/HPF) /HPF Ur Epithelial Cells Few (NOT SEEN) /HPF Amorphous Sediment Moderate H (NOT SEEN) /HPF Urine Bacteria Few (0-FEW/HPF) /HPF Urine Mucus Few H (NOT SEEN) /LPF Urine HCG, Qual Urine Opiates Screen (NEGATIVE) Ur Oxycodone Screen (NEGATIVE) Urine Methadone Screen (NEGATIVE) Ur Barbiturates Screen (NEGATIVE) U Tricyclic Antidepress (NEGATIVE) Ur Phencyclidine Scrn (NEGATIVE) Ur Amphetamine Screen (NEGATIVE) U Methamphetamines Scrn (NEGATIVE) Urine MDMA Screen (NEGATIVE) U Benzodiazepines Scrn (NEGATIVE) Urine Cocaine Screen (NEGATIVE) U Marijuana (THC) Screen (NEGATIVE) Ethyl Alcohol (0) mg/dL COVID-19 (JEFF) (NEGATIVE) Result Diagrams: 12/30/19 13:46 12/30/19 13:46 - Problem List (1) Fever SNOMED Code(s): 923423548 ICD Code: R50.9 - FEVER, UNSPECIFIED Status: Acute Current Visit: Yes (2) Sepsis SNOMED Code(s): 12871784 ICD Code: A41.9 - SEPSIS, UNSPECIFIED ORGANISM Status: Acute Current Visit: Yes (3) Methamphetamine abuse SNOMED Code(s): 180793692 ICD Code: F15.10 - OTHER STIMULANT ABUSE, UNCOMPLICATED Status: Acute Current Visit: No Problem List Initiated/Reviewed/Updated: Yes Orders Last 24hrs: Active Orders 24 hr Category Date Time Status Admission Diagnosis [ADT] Routine ADT 12/30/19 16:58 Ordered Admission Status [Patient Status] [ADT] Routine ADT 12/30/19 16:58 Active Antiembolic Devices [RC] PER UNIT ROUTINE Care 12/30/19 17:54 Active EKG 12 Lead [EKG Documentation Completion] [RC] STAT Care 12/30/19 13:27 Active Oxygen Therapy [RC] PRN Care 12/30/19 17:52 Active Peripheral IV Care [RC] . DIRECTED Care 12/30/19 17:54 Active RT Aerosol Therapy [RC] ASDIRECTED Care 12/30/19 17:54 Active Up With Assistance [RC] ASDIRECTED Care 12/30/19 17:52 Active VTE/DVT Education [RC] PER UNIT ROUTINE Care 12/30/19 17:52 Active Vital Signs [RC] Q4H Care 12/30/19 17:52 Active Regular Diet [DIET] Diet 12/30/19 Breakfast Active BASIC METABOLIC PANEL,BMP [CHEM] AM Lab 12/31/19 05:11 Ordered CBC WITH AUTO DIFF [HEME] AM Lab 12/31/19 05:11 Ordered CULTURE BLOOD [BC] Stat Lab 12/30/19 17:48 Ordered CULTURE BLOOD [BC] Stat Lab 12/30/19 17:48 Ordered CULTURE URINE [RM] Stat Lab 12/30/19 16:15 Received LACTIC ACID [CHEM] Routine Lab 12/30/19 17:50 Ordered MAGNESIUM [CHEM] AM Lab 12/31/19 05:11 Ordered PHOSPHORUS [CHEM] AM Lab 12/31/19 05:11 Ordered Acetaminophen [Tylenol] Med 12/30/19 17:52 Ordered 650 mg PO Q4H PRN Acetaminophen/HYDROcodone [[place] 325-10 MG] Med 12/30/19 17:52 Ordered 1 tab PO Q4H PRN Albuterol [Proventil Neb Soln] Med 12/30/19 17:52 Ordered 2.5 mg NEB Q2H PRN Docusate Sodium [Colace] Med 12/30/19 17:52 Ordered 100 mg PO BID PRN Heparin Sodium Med 12/30/19 22:00 Ordered 5,000 units SUBCUT Q8HR Levofloxacin/Dextrose 5%-Water [Levaquin in D5W 750 MG/ Med 12/30/19 18:00 Ordered 150 ML] 750 mg Premix Bag 1 bag IV Q24H Morphine Med 12/30/19 17:52 Ordered 2 mg IVPUSH Q2H PRN Ondansetron [Zofran ODT] Med 12/30/19 17:52 Ordered 4 mg PO Q6H PRN Ondansetron [Zofran] Med 12/30/19 17:52 Ordered 4 mg IVPUSH Q6H PRN Pharmacy to Dose - Vancomycin Med 12/30/19 18:00 Ordered 1 dose .XX ASDIRECTED Sodium Chloride 0.9% [Normal Saline] 1,000 ml Med 12/30/19 18:00 Ordered IV ASDIRECTED Sodium Chloride 0.9% [Saline Flush] Med 12/30/19 17:52 Ordered 10 ml FLUSH ASDIRECTED PRN Zolpidem [Ambien] Med 12/30/19 17:52 Ordered 5 mg PO BEDTIME PRN polyethylene glycoL 3350 [MiraLAX] Med 12/31/19 09:00 Ordered 17 gm PO DAILY Antiembolic Hose [OM.PC] Per Unit Routine Oth 12/30/19 17:53 Ordered Blood Culture x2 Reflex Set [OM.PC] Stat Oth 12/30/19 17:48 Ordered Peripheral IV Insertion Adult [OM.PC] Routine Oth 12/30/19 17:52 Ordered Resuscitation Status Routine Resus Stat 12/30/19 17:52 Ordered Medication Orders Acetaminophen (Tylenol) 650 mg PO Q4H PRN PRN Reason: Pain (Mild 1-3)/fever Hydrocodone Bitart/Acetaminophen ([place] 325-10 Mg) 1 tab PO Q4H PRN PRN Reason: Pain (moderate 4-6) Albuterol (Proventil Neb Soln) 2.5 mg NEB Q2H PRN PRN Reason: shortness of breath/wheezing Docusate Sodium (Colace) 100 mg PO BID PRN PRN Reason: Constipation Heparin Sodium (Porcine) (Heparin Sodium) 5,000 units SUBCUT Q8HR DONY Levofloxacin/Dextrose 750 mg/ (Premix) 150 mls @ 100 mls/hr IV Q24H DONY Sodium Chloride (Normal Saline) 1,000 mls @ 125 mls/hr IV ASDIRECTED DONY Morphine Sulfate (Morphine) 2 mg IVPUSH Q2H PRN PRN Reason: Pain (severe 7-10) Ondansetron HCl (Zofran Odt) 4 mg PO Q6H PRN PRN Reason: nausea, able to take PO Ondansetron HCl (Zofran) 4 mg IVPUSH Q6H PRN PRN Reason: Nausea/Vomiting Polyethylene Glycol (Miralax) 17 gm PO DAILY [facility] Sodium Chloride (Saline Flush) 10 ml FLUSH ASDIRECTED PRN PRN Reason: Keep Vein Open Vancomycin HCl (Pharmacy To Dose - Vancomycin) 1 dose .XX ASDIRECTED DONY Zolpidem Tartrate (Ambien) 5 mg PO BEDTIME PRN PRN Reason: Sleep Assessment/Plan Comment:: 29-year-old lady with a history of meth use. Presented with chest pain, shortness of breath, fever In the emergency room there was also concern that the patient is somewhat lethargic. Chest pain is sharp started 2 days prior to admission, worse with moving. Feeling achy. CT of the chest with contrast No pulmonary embolism, no infiltrate sepsis with tachycardia, fever Hydrate the patient well Treat likely bacterial infection Check lactic acid Covid 19 negative Source of infection is not clear CT of the chest showed no pneumonia Possible endocarditis, bacteremia from IV drug use Mildly abnormal UA, Possible urinary tract infection Obtain blood culture Obtain urine culture Treat empirically with levofloxacin, vancomycin given penicillin allergy Shortness of breath Covid negative CT of the chest showed no PE, no infiltrate Will monitor Hyponatremia Will hydrate well acute metabolic encephalopathy Lethargy noted in the emergency room Appears improved Likely related to sepsis, possibly due to drugs Hydrate well Treat infection Well monitor Advised on cessation of drug use SQ Heparin for DVT prophylaxis
[2019-12-30] MEDS: Sodium Chloride 0.9% 1,000 ML IV SCH (18:32)
[2019-12-30] MEDS: Acetaminophen 325 MG Tab PO PRN (20:05)
[2019-12-30] MEDS: Heparin Sodium 5,000 Units/ML Vial SUBCUT SCH (22:49)
[2019-12-30] MEDS: Acetaminophen/HYDROcodone 325-10 MG Tab PO PRN (22:50)
[2019-12-31] MEDS: Acetaminophen/HYDROcodone 325-10 MG Tab PO PRN ×2 (05:34→10:15)
[2019-12-31] MEDS: Sodium Chloride 0.9% 1,000 ML IV SCH (05:40)
[2019-12-31] MEDS: Heparin Sodium 5,000 Units/ML Vial SUBCUT SCH ×2 (05:43→15:36)
[2019-12-31 07:30] LABS: ANION GAP 11.4 mEq/L (7-13); CHLORIDE,CL 100 mmol/L (98-107); SODIUM,NA 134 mmol/L (136-145)
[2019-12-31 08:05] VITALS: PULSE 98
[2019-12-31] MEDS: Acetaminophen 325 MG Tab PO PRN (08:59)
[2019-12-31] MEDS ORDERED: Polyethylene Glycol 3350 Powder 17 GM Packet PO SCH (09:00)
[2019-12-31 11:36] VITALS: BP 107/76
[2019-12-31] MEDS ORDERED: Phosphorus #1 250 MG Tab PO SCH (12:30)
--- NOTE | 2019-12-31 12:48 | PCM.PN ---
- General Info Date of Service: 12/31/19 Admission Dx/Problem (Free Text): Admission Diagnosis/Problem Admission Diagnosis/Problem uti Subjective Update: She is feeling well, now cooperative. Had fever on admission but No fever overnight. She says she has a history of left-sided chest pain that was the previously diagnosed as a costochondritis. She has no significant urine burning, no shortness of breath, no cough. Functional Status: Reports: Pain Controlled, Tolerating Diet - Review of Systems General: Denies: Fever Pulmonary: Denies: Shortness of Breath Cardiovascular: Reports: Chest Pain (Still on and off left-sided) Genitourinary: Denies: Dysuria - Patient Data Vitals - Most Recent: Last Vital Signs Temp 97.7 F 12/31/19 11:35 Pulse 98 12/31/19 11:35 Resp 20 12/31/19 11:35 BP 107/76 12/31/19 11:35 Pulse Ox 99 12/31/19 11:35 Weight - Most Recent: 183 lb I&O - Last 24 Hours: Intake & Output 12/30/19 12/31/19 12/31/19 22:59 06:59 14:59 Intake Total 20 1923 1236 Balance 20 1923 1236 Lab Results Last 24 Hours: Laboratory Results - last 24 hr 12/30/19 12/30/19 12/30/19 Range/Units 13:46 13:46 13:46 WBC 15.8 H (5.0-10.0) 10^3/uL RBC 5.09 (4.2-5.4) 10^6/uL Hgb 15.4 (12.0-16.0) g/dL Hct 44.8 (37.0-47.0) % MCV 88.0 (80-100) fL MCH 30.3 (27.0-34.0) pg MCHC 34.4 (33.0-35.0) g/dL Plt Count 194 (150-450) 10^3/uL Neut % (Auto) 88.2 H (42.2-75.2) % Lymph % (Auto) 5.3 L (20.5-50.1) % [place] % (Auto) 6.2 (2-8) % Eos % (Auto) 0.1 L (1.0-3.0) % Baso % (Auto) 0.2 (0.0-1.0) % D-Dimer, Quantitative 1320 H (0-400) ng/mL Sodium 130 L (136-145) mmol/L Potassium 4.1 (3.5-5.1) mmol/L Chloride 97 L (98-107) mmol/L Carbon Dioxide 25 (21-32) mmol/L Anion Gap 12.1 (7-13) mEq/L BUN 7 (7-18) mg/dL Creatinine 0.80 (0.55-1.02) mg/dL Est Cr Clr Drug Dosing 107.46 mL/min Estimated GFR (MDRD) > 60 BUN/Creatinine Ratio 8.8 (No establ ref range) Glucose 109 H (74-99) mg/dL Lactic Acid (0.4-2.0) mmol/L Calcium 8.7 (8.5-10.1) mg/dL Phosphorus (2.6-4.7) mg/dL Magnesium (1.8-2.4) mg/dL Total Bilirubin 0.8 (0.2-1.0) mg/dL AST 54 H (15-37) U/L ALT 65 H (14-59) U/L Alkaline Phosphatase 54 (46-116) U/L Troponin I < 0.017 (0.000-0.056) ng/mL Total Protein 8.7 H (6.4-8.2) g/dL Albumin 3.6 (3.4-5.0) g/dL Globulin 5.1 Albumin/Globulin Ratio 0.7 Urine Color (YELLOW) Urine Appearance (CLEAR) Urine pH (5.0-9.0) Ur Specific [place] (1.005-1.030) Urine Protein (NEGATIVE) Urine Glucose (UA) (NEGATIVE) Urine Ketones (NEGATIVE) Urine Occult Blood (NEGATIVE) Urine Nitrite (NEGATIVE) Urine Bilirubin (NEGATIVE) Urine Urobilinogen (0.2-1.0) mg/dL Ur Leukocyte Esterase (NEGATIVE) Urine RBC /HPF Urine WBC (0-5/HPF) /HPF Ur Epithelial Cells (NOT SEEN) /HPF Amorphous Sediment (NOT SEEN) /HPF Urine Bacteria (0-FEW/HPF) /HPF Urine Mucus (NOT SEEN) /LPF Urine HCG, Qual Urine Opiates Screen (NEGATIVE) Ur Oxycodone Screen (NEGATIVE) Urine Methadone Screen (NEGATIVE) Ur Barbiturates Screen (NEGATIVE) U Tricyclic Antidepress (NEGATIVE) Ur Phencyclidine Scrn (NEGATIVE) Ur Amphetamine Screen (NEGATIVE) U Methamphetamines Scrn (NEGATIVE) Urine MDMA Screen (NEGATIVE) U Benzodiazepines Scrn (NEGATIVE) Urine Cocaine Screen (NEGATIVE) U Marijuana (THC) Screen (NEGATIVE) Ethyl Alcohol < 3 (0) mg/dL COVID-19 (JEFF) (NEGATIVE) 12/30/19 12/30/19 12/30/19 Range/Units 13:49 16:10 16:15 WBC (5.0-10.0) 10^3/uL RBC (4.2-5.4) 10^6/uL Hgb (12.0-16.0) g/dL Hct (37.0-47.0) % MCV (80-100) fL MCH (27.0-34.0) pg MCHC (33.0-35.0) g/dL Plt Count (150-450) 10^3/uL Neut % (Auto) (42.2-75.2) % Lymph % (Auto) (20.5-50.1) % [place] % (Auto) (2-8) % Eos % (Auto) (1.0-3.0) % Baso % (Auto) (0.0-1.0) % D-Dimer, Quantitative (0-400) ng/mL Sodium (136-145) mmol/L Potassium (3.5-5.1) mmol/L Chloride (98-107) mmol/L Carbon Dioxide (21-32) mmol/L Anion Gap (7-13) mEq/L BUN (7-18) mg/dL Creatinine (0.55-1.02) mg/dL Est Cr Clr Drug Dosing mL/min Estimated GFR (MDRD) BUN/Creatinine Ratio (No establ ref range) Glucose (74-99) mg/dL Lactic Acid (0.4-2.0) mmol/L Calcium (8.5-10.1) mg/dL Phosphorus (2.6-4.7) mg/dL Magnesium (1.8-2.4) mg/dL Total Bilirubin (0.2-1.0) mg/dL AST (15-37) U/L ALT (14-59) U/L Alkaline Phosphatase (46-116) U/L Troponin I (0.000-0.056) ng/mL Total Protein (6.4-8.2) g/dL Albumin (3.4-5.0) g/dL Globulin Albumin/Globulin Ratio Urine Color (YELLOW) Urine Appearance (CLEAR) Urine pH (5.0-9.0) Ur Specific [place] (1.005-1.030) Urine Protein (NEGATIVE) Urine Glucose (UA) (NEGATIVE) Urine Ketones (NEGATIVE) Urine Occult Blood (NEGATIVE) Urine Nitrite (NEGATIVE) Urine Bilirubin (NEGATIVE) Urine Urobilinogen (0.2-1.0) mg/dL Ur Leukocyte Esterase (NEGATIVE) Urine RBC /HPF Urine WBC (0-5/HPF) /HPF Ur Epithelial Cells (NOT SEEN) /HPF Amorphous Sediment (NOT SEEN) /HPF Urine Bacteria (0-FEW/HPF) /HPF Urine Mucus (NOT SEEN) /LPF Urine HCG, Qual Negative Urine Opiates Screen Negative (NEGATIVE) Ur Oxycodone Screen Negative (NEGATIVE) Urine Methadone Screen Negative (NEGATIVE) Ur Barbiturates Screen Negative (NEGATIVE) U Tricyclic Antidepress Negative (NEGATIVE) Ur Phencyclidine Scrn Negative (NEGATIVE) Ur Amphetamine Screen Positive H (NEGATIVE) U Methamphetamines Scrn Positive H (NEGATIVE) Urine MDMA Screen Positive H (NEGATIVE) U Benzodiazepines Scrn Negative (NEGATIVE) Urine Cocaine Screen Negative (NEGATIVE) U Marijuana (THC) Screen Negative (NEGATIVE) Ethyl Alcohol (0) mg/dL COVID-19 (JEFF) Negative (NEGATIVE) 12/30/19 12/30/19 12/31/19 Range/Units 16:15 19:35 06:40 WBC 11.8 H (5.0-10.0) 10^3/uL RBC 4.18 L (4.2-5.4) 10^6/uL Hgb 12.7 D (12.0-16.0) g/dL Hct 37.2 (37.0-47.0) % MCV 89.0 (80-100) fL MCH 30.4 (27.0-34.0) pg MCHC 34.1 (33.0-35.0) g/dL Plt Count 170 (150-450) 10^3/uL Neut % (Auto) 80.2 H (42.2-75.2) % Lymph % (Auto) 8.4 L (20.5-50.1) % [place] % (Auto) 11.0 H (2-8) % Eos % (Auto) 0.2 L (1.0-3.0) % Baso % (Auto) 0.2 (0.0-1.0) % D-Dimer, Quantitative (0-400) ng/mL Sodium (136-145) mmol/L Potassium (3.5-5.1) mmol/L Chloride (98-107) mmol/L Carbon Dioxide (21-32) mmol/L Anion Gap (7-13) mEq/L BUN (7-18) mg/dL Creatinine (0.55-1.02) mg/dL Est Cr Clr Drug Dosing mL/min Estimated GFR (MDRD) BUN/Creatinine Ratio (No establ ref range) Glucose (74-99) mg/dL Lactic Acid 1.2 (0.4-2.0) mmol/L Calcium (8.5-10.1) mg/dL Phosphorus (2.6-4.7) mg/dL Magnesium (1.8-2.4) mg/dL Total Bilirubin (0.2-1.0) mg/dL AST (15-37) U/L ALT (14-59) U/L Alkaline Phosphatase (46-116) U/L Troponin I (0.000-0.056) ng/mL Total Protein (6.4-8.2) g/dL Albumin (3.4-5.0) g/dL Globulin Albumin/Globulin Ratio Urine Color Yellow (YELLOW) Urine Appearance Slightly cloudy (CLEAR) Urine pH 7.0 (5.0-9.0) Ur Specific [place] 1.025 (1.005-1.030) Urine Protein Negative (NEGATIVE) Urine Glucose (UA) Negative (NEGATIVE) Urine Ketones Negative (NEGATIVE) Urine Occult Blood Trace-intact H (NEGATIVE) Urine Nitrite Positive H (NEGATIVE) Urine Bilirubin Negative (NEGATIVE) Urine Urobilinogen 0.2 (0.2-1.0) mg/dL Ur Leukocyte Esterase Negative (NEGATIVE) Urine RBC 5-10 H /HPF Urine WBC 5-10 H (0-5/HPF) /HPF Ur Epithelial Cells Few (NOT SEEN) /HPF Amorphous Sediment Moderate H (NOT SEEN) /HPF Urine Bacteria Few (0-FEW/HPF) /HPF Urine Mucus Few H (NOT SEEN) /LPF Urine HCG, Qual Urine Opiates Screen (NEGATIVE) Ur Oxycodone Screen (NEGATIVE) Urine Methadone Screen (NEGATIVE) Ur Barbiturates Screen (NEGATIVE) U Tricyclic Antidepress (NEGATIVE) Ur Phencyclidine Scrn (NEGATIVE) Ur Amphetamine Screen (NEGATIVE) U Methamphetamines Scrn (NEGATIVE) Urine MDMA Screen (NEGATIVE) U Benzodiazepines Scrn (NEGATIVE) Urine Cocaine Screen (NEGATIVE) U Marijuana (THC) Screen (NEGATIVE) Ethyl Alcohol (0) mg/dL COVID-19 (JEFF) (NEGATIVE) 12/31/19 Range/Units 06:40 WBC (5.0-10.0) 10^3/uL RBC (4.2-5.4) 10^6/uL Hgb (12.0-16.0) g/dL Hct (37.0-47.0) % MCV (80-100) fL MCH (27.0-34.0) pg MCHC (33.0-35.0) g/dL Plt Count (150-450) 10^3/uL Neut % (Auto) (42.2-75.2) % Lymph % (Auto) (20.5-50.1) % [place] % (Auto) (2-8) % Eos % (Auto) (1.0-3.0) % Baso % (Auto) (0.0-1.0) % D-Dimer, Quantitative (0-400) ng/mL Sodium 134 L (136-145) mmol/L Potassium 3.4 L (3.5-5.1) mmol/L Chloride 100 (98-107) mmol/L Carbon Dioxide 26 (21-32) mmol/L Anion Gap 11.4 (7-13) mEq/L BUN 6 L (7-18) mg/dL Creatinine 0.77 (0.55-1.02) mg/dL Est Cr Clr Drug Dosing 111.65 mL/min Estimated GFR (MDRD) > 60 BUN/Creatinine Ratio (No establ ref range) Glucose 93 (74-99) mg/dL Lactic Acid (0.4-2.0) mmol/L Calcium 7.7 L (8.5-10.1) mg/dL Phosphorus 2.4 L (2.6-4.7) mg/dL Magnesium 1.7 L (1.8-2.4) mg/dL Total Bilirubin (0.2-1.0) mg/dL AST (15-37) U/L ALT (14-59) U/L Alkaline Phosphatase (46-116) U/L Troponin I (0.000-0.056) ng/mL Total Protein (6.4-8.2) g/dL Albumin (3.4-5.0) g/dL Globulin Albumin/Globulin Ratio Urine Color (YELLOW) Urine Appearance (CLEAR) Urine pH (5.0-9.0) Ur Specific [place] (1.005-1.030) Urine Protein (NEGATIVE) Urine Glucose (UA) (NEGATIVE) Urine Ketones (NEGATIVE) Urine Occult Blood (NEGATIVE) Urine Nitrite (NEGATIVE) Urine Bilirubin (NEGATIVE) Urine Urobilinogen (0.2-1.0) mg/dL Ur Leukocyte Esterase (NEGATIVE) Urine RBC /HPF Urine WBC (0-5/HPF) /HPF Ur Epithelial Cells (NOT SEEN) /HPF Amorphous Sediment (NOT SEEN) /HPF Urine Bacteria (0-FEW/HPF) /HPF Urine Mucus (NOT SEEN) /LPF Urine HCG, Qual Urine Opiates Screen (NEGATIVE) Ur Oxycodone Screen (NEGATIVE) Urine Methadone Screen (NEGATIVE) Ur Barbiturates Screen (NEGATIVE) U Tricyclic Antidepress (NEGATIVE) Ur Phencyclidine Scrn (NEGATIVE) Ur Amphetamine Screen (NEGATIVE) U Methamphetamines Scrn (NEGATIVE) Urine MDMA Screen (NEGATIVE) U Benzodiazepines Scrn (NEGATIVE) Urine Cocaine Screen (NEGATIVE) U Marijuana (THC) Screen (NEGATIVE) Ethyl Alcohol (0) mg/dL COVID-19 (JEFF) (NEGATIVE) Dre Results Last 24 Hours: Microbiology 12/30/19 19:30 Aerobic Blood Culture - Preliminary Blood - Venous 12/30/19 19:35 Aerobic Blood Culture - Preliminary Blood - Venous - Lab Draw 12/30/19 16:15 Urine Culture - Preliminary Urine, Voided Med Orders - Current: Current Medications Acetaminophen (Tylenol) 650 mg PO Q4H PRN PRN Reason: Pain (Mild 1-3)/fever Last Admin: 12/31/19 08:59 Dose: 650 mg Documented by: Hydrocodone Bitart/Acetaminophen ([place] 325-10 Mg) 1 tab PO Q4H PRN PRN Reason: Pain (moderate 4-6) Last Admin: 12/31/19 10:15 Dose: 1 tab Documented by: Albuterol (Proventil Neb Soln) 2.5 mg NEB Q2H PRN PRN Reason: shortness of breath/wheezing Docusate Sodium (Colace) 100 mg PO BID PRN PRN Reason: Constipation Heparin Sodium (Porcine) (Heparin Sodium) 5,000 units SUBCUT Q8HR [facility] Last Admin: 12/31/19 05:43 Dose: Not Given Documented by: Levofloxacin/Dextrose 750 mg/ (Premix) 150 mls @ 100 mls/hr IV Q24H [facility] Last Admin: 12/30/19 18:32 Dose: 100 mls/hr Documented by: Sodium Chloride (Normal Saline) 1,000 mls @ 125 mls/hr IV ASDIRECTED [facility] Last Admin: 12/31/19 05:40 Dose: 125 mls/hr Documented by: Vancomycin HCl 1 gm/ Sodium (Chloride) 250 mls @ 166.667 mls/hr IV Q8H [facility] Last Admin: 12/31/19 07:27 Dose: 166.667 mls/hr Documented by: Morphine Sulfate (Morphine) 2 mg IVPUSH Q2H PRN PRN Reason: Pain (severe 7-10) Ondansetron HCl (Zofran Odt) 4 mg PO Q6H PRN PRN Reason: nausea, able to take PO Ondansetron HCl (Zofran) 4 mg IVPUSH Q6H PRN PRN Reason: Nausea/Vomiting Polyethylene Glycol (Miralax) 17 gm PO DAILY [facility] Last Admin: 12/31/19 09:01 Dose: 17 gm Documented by: Sodium Chloride (Saline Flush) 10 ml FLUSH ASDIRECTED PRN PRN Reason: Keep Vein Open Sodium Phosphate (Neutra-Phos) 250 mg PO Q4H [facility] Stop: 12/31/19 16:31 Vancomycin HCl (Pharmacy To Dose - Vancomycin) 1 dose .XX ASDIRECTED [facility] Zolpidem Tartrate (Ambien) 5 mg PO BEDTIME PRN PRN Reason: Sleep Last Admin: 12/30/19 22:52 Dose: 5 mg Documented by: Discontinued Medications Diphenhydramine HCl (Benadryl) 25 mg IVPUSH ONETIME ONE Stop: 12/30/19 14:56 Last Admin: 12/30/19 15:22 Dose: 25 mg Documented by: Sodium Chloride (Normal Saline) 1,000 mls @ 999 mls/hr IV .BOLUS ONE Stop: 12/30/19 15:53 Last Admin: 12/30/19 15:22 Dose: 999 mls/hr Documented by: Vancomycin HCl 1 gm/ Sodium (Chloride) 250 mls @ 167 mls/hr IV ONETIME ONE Stop: 12/30/19 16:22 Last Admin: 12/30/19 15:22 Dose: 167 mls/hr Documented by: Sodium Chloride (Normal Saline) 1,000 mls @ 999 mls/hr IV .BOLUS ONE Stop: 12/30/19 17:41 Last Admin: 12/30/19 16:54 Dose: 999 mls/hr Documented by: Iopamidol (Isovue-370 (76%)) 100 ml IVPUSH ONETIME ONE Stop: 12/30/19 14:52 Last Admin: 12/30/19 15:17 Dose: 68 ml Documented by: - Exam General: Alert, Oriented Neck: Supple Lungs: Clear to Auscultation, Normal Respiratory Effort Cardiovascular: Regular Rate, Regular Rhythm GI/Abdominal Exam: Normal Bowel Sounds, Soft, Non-Tender Extremities: No Pedal Edema Sepsis Event Note - Evaluation Sepsis Screening Result: No Definite Risk - Focused Exam Vital Signs: Vital Signs Temp Pulse Resp BP Pulse Ox 12/31/19 11:35 97.7 F 98 20 107/76 99 12/31/19 08:04 97.6 F 98 20 104/77 99 12/31/19 01:00 99.6 F Date Exam was Performed: 12/31/19 Time Exam was Performed: 12:49 - Problem List & Annotations (1) Fever SNOMED Code(s): 860944656 Code(s): R50.9 - FEVER, UNSPECIFIED Status: Acute Current Visit: Yes (2) Sepsis SNOMED Code(s): 23156775 Code(s): A41.9 - SEPSIS, UNSPECIFIED ORGANISM Status: Acute Current Visit: Yes (3) Methamphetamine abuse SNOMED Code(s): 784377089 Code(s): F15.10 - OTHER STIMULANT ABUSE, UNCOMPLICATED Status: Acute Cur rent Visit: No - Problem List Review Problem List Initiated/Reviewed/Updated: Yes - My Orders Last 24 Hours: My Active Orders 12/30/19 17:48 Blood Culture x2 Reflex Set [OM.PC] Stat 12/30/19 17:52 Oxygen Therapy [RC] PRN Up With Assistance [RC] ASDIRECTED VTE/DVT Education [RC] PER UNIT ROUTINE Vital Signs [RC] Q4H Acetaminophen [Tylenol] 650 mg PO Q4H PRN Acetaminophen/HYDROcodone [[place] 325-10 MG] 1 tab PO Q4H PRN Albuterol [Proventil Neb Soln] 2.5 mg NEB Q2H PRN Docusate Sodium [Colace] 100 mg PO BID PRN Morphine 2 mg IVPUSH Q2H PRN Ondansetron [Zofran ODT] 4 mg PO Q6H PRN Ondansetron [Zofran] 4 mg IVPUSH Q6H PRN Sodium Chloride 0.9% [Saline Flush] 10 ml FLUSH ASDIRECTED PRN Zolpidem [Ambien] 5 mg PO BEDTIME PRN Peripheral IV Insertion Adult [OM.PC] Routine Resuscitation Status Routine 12/30/19 17:53 Antiembolic Hose [OM.PC] Per Unit Routine 12/30/19 17:54 Antiembolic Devices [RC] PER UNIT ROUTINE Peripheral IV Care [RC] . DIRECTED RT Aerosol Therapy [RC] ASDIRECTED 12/30/19 18:00 Levofloxacin/Dextrose 5%-Water [Levaquin in D5W 750 MG/150 ML] 750 mg Premix Bag 1 bag IV Q24H Pharmacy to Dose - Vancomycin 1 dose .XX ASDIRECTED Sodium Chloride 0.9% [Normal Saline] 1,000 ml IV ASDIRECTED 12/30/19 19:30 CULTURE BLOOD [BC] Stat 12/30/19 19:35 CULTURE BLOOD [BC] Stat 12/30/19 22:00 Heparin Sodium 5,000 units SUBCUT Q8HR 12/30/19 23:00 Vancomycin 1 gm Sodium Chloride 0.9% [Normal Saline] 250 ml IV Q8H 12/31/19 09:00 polyethylene glycoL 3350 [MiraLAX] 17 gm PO DAILY 12/31/19 12:30 Phosphorus #1 [Neutra-Phos] 250 mg PO Q4H 12/31/19 12:40 CULTURE BLOOD [BC] Stat CULTURE BLOOD [BC] Stat Blood Culture x2 Reflex Set [OM.PC] Stat - Plan Plan:: 29-year-old lady with a history of meth use. Presented with chest pain, shortness of breath, fever In the emergency room there was also concern that the patient is somewhat lethargic. Chest pain has been sharp, started 2 days prior to admission, worse with moving. Feeling achy. CT of the chest with contrast No pulmonary embolism, no infiltrate sepsis with tachycardia, fever Hydrated the patient well Treat likely bacterial infection Negative lactic acid Covid 19 negative Source of infection is not clear But appears to have bacteremia with 2 out of 2 gram-positive cocci CT of the chest showed no pneumonia Possible endocarditis, bacteremia from IV drug use We'll obtain echocardiogram Mildly abnormal UA, Possible urinary tract infection Pending urine culture Has been treating empirically with levofloxacin, vancomycin given penicillin allergy Shortness of breath Covid negative CT of the chest showed no PE, no infiltrate Will monitor Hyponatremia Will hydrate well acute metabolic encephalopathy Lethargy noted in the emergency room Appears resolved Likely related to sepsis, possibly due to drugs Hydrate well Treat infection Well monitor Advised on cessation of drug use SQ Heparin for DVT prophylaxis Following discussion of the current findings and further treatment plans the samara kelley stated that she does not want to stay in the hospital any longer. She has a move scheduled to move to [place] today. She says she cannot miss that she has no other transportation options. She is willing to get further treatment in [place]. She will call back tomorrow for further results of the blood cultures. If the blood culture results appear not to be contaminant she is willing to seek local treatment. The patient is going to leave AGAINST MEDICAL ADVICE today.
--- NOTE | 2019-12-31 12:59 | PCM.DCSUM1 ---
Discharge Summary - Hospital Course Free Text/Narrative:: Presented with fever, leukocytosis Concern was for sepsis Possible urinary source With the history of the injected drug use concern was sepsis, bacteremia, endocarditis Blood cultures were obtained Blood culture was identified as 2 out of 2 gram-positive cocci Significant concern for endocarditis The patient did not want to stay in the hospital for further observation and treatment She is willing to seek medical care in [place] as soon as possible. In the meantime I gave the patient prescription for levofloxacin knowing well that that will not be the perfect treatment but probably better than nothing. The patient is leaving AGAINST MEDICAL ADVICE. - Discharge Data Discharge Date: 12/31/19 Discharge Disposition: Against Medical Advice 07 Condition: Good - Referral to Home Health Primary Care Physician: PCP Unobtainable - Discharge Diagnosis/Problem(s) (1) Fever SNOMED Code(s): 615760088 ICD Code: R50.9 - FEVER, UNSPECIFIED Status: Acute Current Visit: Yes (2) Sepsis SNOMED Code(s): 42766149 ICD Code: A41.9 - SEPSIS, UNSPECIFIED ORGANISM Status: Acute Current Visit: Yes (3) Methamphetamine abuse SNOMED Code(s): 433706149 ICD Code: F15.10 - OTHER STIMULANT ABUSE, UNCOMPLICATED Status: Acute Current Visit: No (4) Bacteremia SNOMED Code(s): 0563092 ICD Code: R78.81 - BACTEREMIA Status: Acute Current Visit: Yes - Discharge Plan *PRESCRIPTION DRUG MONITORING PROGRAM REVIEWED*: Not Applicable *COPY OF PRESCRIPTION DRUG MONITORING REPORT IN PATIENT YASMEEN: Not Applicable Prescriptions/Med Rec: levoFLOXacin [Levofloxacin] 750 mg PO DAILY #7 tablet Home Medications: Home Meds levoFLOXacin [Levofloxacin] 750 mg PO DAILY #7 tablet 12/31/19 [Rx] Oxygen Therapy Mode: Room Air Forms: ED Department Discharge Referrals: PCP,Unobtain [Primary Care Provider] - (follow up [facility] in [place]) - Discharge Summary/Plan Comment DC Time >30 min.: No - Patient Data Vitals - Most Recent: Last Vital Signs Temp 97.7 F 12/31/19 11:35 Pulse 98 12/31/19 11:35 Resp 20 12/31/19 11:35 BP 107/76 12/31/19 11:35 Pulse Ox 99 12/31/19 11:35 Weight - Most Recent: 183 lb I&O - Last 24 hours: Intake & Output 12/30/19 12/31/19 12/31/19 22:59 06:59 14:59 Intake Total 1922 1236 Balance 1922 1236 Lab Results - Last 24 hrs: Laboratory Results - last 24 hr 12/30/19 12/30/19 12/30/19 Range/Units 13:46 13:46 13:46 WBC 15.8 H (5.0-10.0) 10^3/uL RBC 5.09 (4.2-5.4) 10^6/uL Hgb 15.4 (12.0-16.0) g/dL Hct 44.8 (37.0-47.0) % MCV 88.0 (80-100) fL MCH 30.3 (27.0-34.0) pg MCHC 34.4 (33.0-35.0) g/dL Plt Count 194 (150-450) 10^3/uL Neut % (Auto) 88.2 H (42.2-75.2) % Lymph % (Auto) 5.3 L (20.5-50.1) % [place] % (Auto) 6.2 (2-8) % Eos % (Auto) 0.1 L (1.0-3.0) % Baso % (Auto) 0.2 (0.0-1.0) % D-Dimer, Quantitative 1320 H (0-400) ng/mL Sodium 130 L (136-145) mmol/L Potassium 4.1 (3.5-5.1) mmol/L Chloride 97 L (98-107) mmol/L Carbon Dioxide 25 (21-32) mmol/L Anion Gap 12.1 (7-13) mEq/L BUN 7 (7-18) mg/dL Creatinine 0.80 (0.55-1.02) mg/dL Est Cr Clr Drug Dosing 107.46 mL/min Estimated GFR (MDRD) > 60 BUN/Creatinine Ratio 8.8 (No establ ref range) Glucose 109 H (74-99) mg/dL Lactic Acid (0.4-2.0) mmol/L Calcium 8.7 (8.5-10.1) mg/dL Phosphorus (2.6-4.7) mg/dL Magnesium (1.8-2.4) mg/dL Total Bilirubin 0.8 (0.2-1.0) mg/dL AST 54 H (15-37) U/L ALT 65 H (14-59) U/L Alkaline Phosphatase 54 (46-116) U/L Troponin I < 0.017 (0.000-0.056) ng/mL Total Protein 8.7 H (6.4-8.2) g/dL Albumin 3.6 (3.4-5.0) g/dL Globulin 5.1 Albumin/Globulin Ratio 0.7 Urine Color (YELLOW) Urine Appearance (CLEAR) Urine pH (5.0-9.0) Ur Specific [place] (1.005-1.030) Urine Protein (NEGATIVE) Urine Glucose (UA) (NEGATIVE) Urine Ketones (NEGATIVE) Urine Occult Blood (NEGATIVE) Urine Nitrite (NEGATIVE) Urine Bilirubin (NEGATIVE) Urine Urobilinogen (0.2-1.0) mg/dL Ur Leukocyte Esterase (NEGATIVE) Urine RBC /HPF Urine WBC (0-5/HPF) /HPF Ur Epithelial Cells (NOT SEEN) /HPF Amorphous Sediment (NOT SEEN) /HPF Urine Bacteria (0-FEW/HPF) /HPF Urine Mucus (NOT SEEN) /LPF Urine HCG, Qual Urine Opiates Screen (NEGATIVE) Ur Oxycodone Screen (NEGATIVE) Urine Methadone Screen (NEGATIVE) Ur Barbiturates Screen (NEGATIVE) U Tricyclic Antidepress (NEGATIVE) Ur Phencyclidine Scrn (NEGATIVE) Ur Amphetamine Screen (NEGATIVE) U Methamphetamines Scrn (NEGATIVE) Urine MDMA Screen (NEGATIVE) U Benzodiazepines Scrn (NEGATIVE) Urine Cocaine Screen (NEGATIVE) U Marijuana (THC) Screen (NEGATIVE) Ethyl Alcohol < 3 (0) mg/dL COVID-19 (JEFF) (NEGATIVE) 12/30/19 12/30/19 12/30/19 Range/Units 13:49 16:10 16:15 WBC (5.0-10.0) 10^3/uL RBC (4.2-5.4) 10^6/uL Hgb (12.0-16.0) g/dL Hct (37.0-47.0) % MCV (80-100) fL MCH (27.0-34.0) pg MCHC (33.0-35.0) g/dL Plt Count (150-450) 10^3/uL Neut % (Auto) (42.2-75.2) % Lymph % (Auto) (20.5-50.1) % [place] % (Auto) (2-8) % Eos % (Auto) (1.0-3.0) % Baso % (Auto) (0.0-1.0) % D-Dimer, Quantitative (0-400) ng/mL Sodium (136-145) mmol/L Potassium (3.5-5.1) mmol/L Chloride (98-107) mmol/L Carbon Dioxide (21-32) mmol/L Anion Gap (7-13) mEq/L BUN (7-18) mg/dL Creatinine (0.55-1.02) mg/dL Est Cr Clr Drug Dosing mL/min Estimated GFR (MDRD) BUN/Creatinine Ratio (No establ ref range) Glucose (74-99) mg/dL Lactic Acid (0.4-2.0) mmol/L Calcium (8.5-10.1) mg/dL Phosphorus (2.6-4.7) mg/dL Magnesium (1.8-2.4) mg/dL Total Bilirubin (0.2-1.0) mg/dL AST (15-37) U/L ALT (14-59) U/L Alkaline Phosphatase (46-116) U/L Troponin I (0.000-0.056) ng/mL Total Protein (6.4-8.2) g/dL Albumin (3.4-5.0) g/dL Globulin Albumin/Globulin Ratio Urine Color (YELLOW) Urine Appearance (CLEAR) Urine pH (5.0-9.0) Ur Specific [place] (1.005-1.030) Urine Protein (NEGATIVE) Urine Glucose (UA) (NEGATIVE) Urine Ketones (NEGATIVE) Urine Occult Blood (NEGATIVE) Urine Nitrite (NEGATIVE) Urine Bilirubin (NEGATIVE) Urine Urobilinogen (0.2-1.0) mg/dL Ur Leukocyte Esterase (NEGATIVE) Urine RBC /HPF Urine WBC (0-5/HPF) /HPF Ur Epithelial Cells (NOT SEEN) /HPF Amorphous Sediment (NOT SEEN) /HPF Urine Bacteria (0-FEW/HPF) /HPF Urine Mucus (NOT SEEN) /LPF Urine HCG, Qual Negative Urine Opiates Screen Negative (NEGATIVE) Ur Oxycodone Screen Negative (NEGATIVE) Urine Methadone Screen Negative (NEGATIVE) Ur Barbiturates Screen Negative (NEGATIVE) U Tricyclic Antidepress Negative (NEGATIVE) Ur Phencyclidine Scrn Negative (NEGATIVE) Ur Amphetamine Screen Positive H (NEGATIVE) U Methamphetamines Scrn Positive H (NEGATIVE) Urine MDMA Screen Positive H (NEGATIVE) U Benzodiazepines Scrn Negative (NEGATIVE) Urine Cocaine Screen Negative (NEGATIVE) U Marijuana (THC) Screen Negative (NEGATIVE) Ethyl Alcohol (0) mg/dL COVID-19 (JEFF) Negative (NEGATIVE) 12/30/19 12/30/19 12/31/19 Range/Units 16:15 19:35 06:40 WBC 11.8 H (5.0-10.0) 10^3/uL RBC 4.18 L (4.2-5.4) 10^6/uL Hgb 12.7 D (12.0-16.0) g/dL Hct 37.2 (37.0-47.0) % MCV 89.0 (80-100) fL MCH 30.4 (27.0-34.0) pg MCHC 34.1 (33.0-35.0) g/dL Plt Count 170 (150-450) 10^3/uL Neut % (Auto) 80.2 H (42.2-75.2) % Lymph % (Auto) 8.4 L (20.5-50.1) % [place] % (Auto) 11.0 H (2-8) % Eos % (Auto) 0.2 L (1.0-3.0) % Baso % (Auto) 0.2 (0.0-1.0) % D-Dimer, Quantitative (0-400) ng/mL Sodium (136-145) mmol/L Potassium (3.5-5.1) mmol/L Chloride (98-107) mmol/L Carbon Dioxide (21-32) mmol/L Anion Gap (7-13) mEq/L BUN (7-18) mg/dL Creatinine (0.55-1.02) mg/dL Est Cr Clr Drug Dosing mL/min Estimated GFR (MDRD) BUN/Creatinine Ratio (No establ ref range) Glucose (74-99) mg/dL Lactic Acid 1.2 (0.4-2.0) mmol/L Calcium (8.5-10.1) mg/dL Phosphorus (2.6-4.7) mg/dL Magnesium (1.8-2.4) mg/dL Total Bilirubin (0.2-1.0) mg/dL AST (15-37) U/L ALT (14-59) U/L Alkaline Phosphatase (46-116) U/L Troponin I (0.000-0.056) ng/mL Total Protein (6.4-8.2) g/dL Albumin (3.4-5.0) g/dL Globulin Albumin/Globulin Ratio Urine Color Yellow (YELLOW) Urine Appearance Slightly cloudy (CLEAR) Urine pH 7.0 (5.0-9.0) Ur Specific [place] 1.025 (1.005-1.030) Urine Protein Negative (NEGATIVE) Urine Glucose (UA) Negative (NEGATIVE) Urine Ketones Negative (NEGATIVE) Urine Occult Blood Trace-intact H (NEGATIVE) Urine Nitrite Positive H (NEGATIVE) Urine Bilirubin Negative (NEGATIVE) Urine Urobilinogen 0.2 (0.2-1.0) mg/dL Ur Leukocyte Esterase Negative (NEGATIVE) Urine RBC 5-10 H /HPF Urine WBC 5-10 H (0-5/HPF) /HPF Ur Epithelial Cells Few (NOT SEEN) /HPF Amorphous Sediment Moderate H (NOT SEEN) /HPF Urine Bacteria Few (0-FEW/HPF) /HPF Urine Mucus Few H (NOT SEEN) /LPF Urine HCG, Qual Urine Opiates Screen (NEGATIVE) Ur Oxycodone Screen (NEGATIVE) Urine Methadone Screen (NEGATIVE) Ur Barbiturates Screen (NEGATIVE) U Tricyclic Antidepress (NEGATIVE) Ur Phencyclidine Scrn (NEGATIVE) Ur Amphetamine Screen (NEGATIVE) U Methamphetamines Scrn (NEGATIVE) Urine MDMA Screen (NEGATIVE) U Benzodiazepines Scrn (NEGATIVE) Urine Cocaine Screen (NEGATIVE) U Marijuana (THC) Screen (NEGATIVE) Ethyl Alcohol (0) mg/dL COVID-19 (JEFF) (NEGATIVE) 12/31/19 Range/Units 06:40 WBC (5.0-10.0) 10^3/uL RBC (4.2-5.4) 10^6/uL Hgb (12.0-16.0) g/dL Hct (37.0-47.0) % MCV (80-100) fL MCH (27.0-34.0) pg MCHC (33.0-35.0) g/dL Plt Count (150-450) 10^3/uL Neut % (Auto) (42.2-75.2) % Lymph % (Auto) (20.5-50.1) % [place] % (Auto) (2-8) % Eos % (Auto) (1.0-3.0) % Baso % (Auto) (0.0-1.0) % D-Dimer, Quantitative (0-400) ng/mL Sodium 134 L (136-145) mmol/L Potassium 3.4 L (3.5-5.1) mmol/L Chloride 100 (98-107) mmol/L Carbon Dioxide 26 (21-32) mmol/L Anion Gap 11.4 (7-13) mEq/L BUN 6 L (7-18) mg/dL Creatinine 0.77 (0.55-1.02) mg/dL Est Cr Clr Drug Dosing 111.65 mL/min Estimated GFR (MDRD) > 60 BUN/Creatinine Ratio (No establ ref range) Glucose 93 (74-99) mg/dL Lactic Acid (0.4-2.0) mmol/L Calcium 7.7 L (8.5-10.1) mg/dL Phosphorus 2.4 L (2.6-4.7) mg/dL Magnesium 1.7 L (1.8-2.4) mg/dL Total Bilirubin (0.2-1.0) mg/dL AST (15-37) U/L ALT (14-59) U/L Alkaline Phosphatase (46-116) U/L Troponin I (0.000-0.056) ng/mL Total Protein (6.4-8.2) g/dL Albumin (3.4-5.0) g/dL Globulin Albumin/Globulin Ratio Urine Color (YELLOW) Urine Appearance (CLEAR) Urine pH (5.0-9.0) Ur Specific [place] (1.005-1.030) Urine Protein (NEGATIVE) Urine Glucose (UA) (NEGATIVE) Urine Ketones (NEGATIVE) Urine Occult Blood (NEGATIVE) Urine Nitrite (NEGATIVE) Urine Bilirubin (NEGATIVE) Urine Urobilinogen (0.2-1.0) mg/dL Ur Leukocyte Esterase (NEGATIVE) Urine RBC /HPF Urine WBC (0-5/HPF) /HPF Ur Epithelial Cells (NOT SEEN) /HPF Amorphous Sediment (NOT SEEN) /HPF Urine Bacteria (0-FEW/HPF) /HPF Urine Mucus (NOT SEEN) /LPF Urine HCG, Qual Urine Opiates Screen (NEGATIVE) Ur Oxycodone Screen (NEGATIVE) Urine Methadone Screen (NEGATIVE) Ur Barbiturates Screen (NEGATIVE) U Tricyclic Antidepress (NEGATIVE) Ur Phencyclidine Scrn (NEGATIVE) Ur Amphetamine Screen (NEGATIVE) U Methamphetamines Scrn (NEGATIVE) Urine MDMA Screen (NEGATIVE) U Benzodiazepines Scrn (NEGATIVE) Urine Cocaine Screen (NEGATIVE) U Marijuana (THC) Screen (NEGATIVE) Ethyl Alcohol (0) mg/dL COVID-19 (JEFF) (NEGATIVE) TOMAS Results - Last 24 hrs: Microbiology 12/30/19 19:30 Aerobic Blood Culture - Preliminary Blood - Venous 12/30/19 19:35 Aerobic Blood Culture - Preliminary Blood - Venous - Lab Draw 12/30/19 16:15 Urine Culture - Preliminary Urine, Voided Med Orders - Current: Current Medications Acetaminophen (Tylenol) 650 mg PO Q4H PRN PRN Reason: Pain (Mild 1-3)/fever Last Admin: 12/31/19 08:59 Dose: 650 mg Documented by: Hydrocodone Bitart/Acetaminophen ([place] 325-10 Mg) 1 tab PO Q4H PRN PRN Reason: Pain (moderate 4-6) Last Admin: 12/31/19 10:15 Dose: 1 tab Documented by: Albuterol (Proventil Neb Soln) 2.5 mg NEB Q2H PRN PRN Reason: shortness of breath/wheezing Docusate Sodium (Colace) 100 mg PO BID PRN PRN Reason: Constipation Heparin Sodium (Porcine) (Heparin Sodium) 5,000 units SUBCUT Q8HR [facility] Last Admin: 12/31/19 05:43 Dose: Not Given Documented by: Levofloxacin/Dextrose 750 mg/ (Premix) 150 mls @ 100 mls/hr IV Q24H [facility] Last Admin: 12/30/19 18:32 Dose: 100 mls/hr Documented by: Sodium Chloride (Normal Saline) 1,000 mls @ 125 mls/hr IV ASDIRECTED [facility] Last Admin: 12/31/19 05:40 Dose: 125 mls/hr Documented by: Vancomycin HCl 1 gm/ Sodium (Chloride) 250 mls @ 166.667 mls/hr IV Q8H [facility] Last Admin: 12/31/19 07:27 Dose: 166.667 mls/hr Documented by: Morphine Sulfate (Morphine) 2 mg IVPUSH Q2H PRN PRN Reason: Pain (severe 7-10) Ondansetron HCl (Zofran Odt) 4 mg PO Q6H PRN PRN Reason: nausea, able to take PO Ondansetron HCl (Zofran) 4 mg IVPUSH Q6H PRN PRN Reason: Nausea/Vomiting Polyethylene Glycol (Miralax) 17 gm PO DAILY [facility] Last Admin: 12/31/19 09:01 Dose: 17 gm Documented by: Sodium Chloride (Saline Flush) 10 ml FLUSH ASDIRECTED PRN PRN Reason: Keep Vein Open Sodium Phosphate (Neutra-Phos) 250 mg PO Q4H [facility] Stop: 12/31/19 16:31 Vancomycin HCl (Pharmacy To Dose - Vancomycin) 1 dose .XX ASDIRECTED DONY Zolpidem Tartrate (Ambien) 5 mg PO BEDTIME PRN PRN Reason: Sleep Last Admin: 12/30/19 22:52 Dose: 5 mg Documented by: Discontinued Medications Diphenhydramine HCl (Benadryl) 25 mg IVPUSH ONETIME ONE Stop: 12/30/19 14:56 Last Admin: 12/30/19 15:22 Dose: 25 mg Documented by: Sodium Chloride (Normal Saline) 1,000 mls @ 999 mls/hr IV .BOLUS ONE Stop: 12/30/19 15:53 Last Admin: 12/30/19 15:22 Dose: 999 mls/hr Documented by: Vancomycin HCl 1 gm/ Sodium (Chloride) 250 mls @ 167 mls/hr IV ONETIME ONE Stop: 12/30/19 16:22 Last Admin: 12/30/19 15:22 Dose: 167 mls/hr Documented by: Sodium Chloride (Normal Saline) 1,000 mls @ 999 mls/hr IV .BOLUS ONE Stop: 12/30/19 17:41 Last Admin: 12/30/19 16:54 Dose: 999 mls/hr Documented by: Iopamidol (Isovue-370 (76%)) 100 ml IVPUSH ONETIME ONE Stop: 12/30/19 14:52 Last Admin: 12/30/19 15:17 Dose: 68 ml Documented by: - Exam General: Reports: Alert, Oriented
--- NOTE | 2020-01-06 10:50 | PCM.SN.2 ---
- Free Text/Narrative Note: blood and urine cx. grew [facility] [employer] called [phone] - no answer, no answering machine called [phone] - brother - disconnected
== END 2019-12-31 13:30 | disposition left against medical advice (07) ==
LOC: DL.ED 13:19 → DL.MS 16:58 → DL.ED 17:13
PROVIDERS: ADMIT Internal Medicine; ATTEND Internal Medicine
DX: A41.9 Sepsis, unspecified organism (principal); G93.41 Metabolic encephalopathy; F15.10 Other stimulant abuse, uncomplicated; F19.10 Other psychoactive substance abuse, uncomplicated; I10 Essential (primary) hypertension; F17.210 Nicotine dependence, cigarettes, uncomplicated; E87.1 Hypo-osmolality and hyponatremia; B96.89 Other specified bacterial agents as the cause of diseases classified elsewhere; F41.9 Anxiety disorder, unspecified; Z20.828 Contact with and (suspected) exposure to other viral communicable diseases; Z88.0 Allergy status to penicillin
CPT/HCPCS: 36415; 71260; 80048; 80053; 80305-QW; 80307; 81001; 81025; 83605; 83735; 84100; 84484; 85025; 85379; 87040; 87077; 87086; 87088; 87186; 93005; 93010; 96361; 96365; 96366; 96367; 96375; 99217; 99218; 99284; 99285-25; A9270-GY; G0378; J1200; J1956; J3370; J7030; J7050; Q9967; U0002

== ENCOUNTER 2020-01-05 17:49 | Emergency (ER) | payer MEDICAID ==
[2020-01-05] MEDS ORDERED: Sodium Chloride 0.9% 10 ML Syringe FLUSH PRN (18:08)
[2020-01-05] MEDS ORDERED: Ketorolac 30 MG/ML SDV IVPUSH ONE (18:10)
[2020-01-05] MEDS ORDERED: Sodium Chloride 0.9% 1,000 ML IV ONE (18:10)
[2020-01-05] MEDS ORDERED: LORazepam 2 MG/ML SDV IVPUSH ONE (18:32)
--- NOTE | 2020-01-05 18:39 | EDM.PDOC ---
Scribed by Belia Vines 01/05/20 1839 for Dave Connelly MD <Dave Connelly - Last Filed: 01/05/20 18:45> ED HPI GENERAL MEDICAL PROBLEM - General Chief Complaint: Chest Pain Stated Complaint: CHEST HURTS Time Seen by Provider: 01/05/20 18:08 Source of Information: Reports: Patient, RN, RN Notes Reviewed History Limitations: Reports: No Limitations - History of Present Illness INITIAL COMMENTS - FREE TEXT/NARRATIVE: Patient presents to the ED by POV with complaint of sharp left chest pain, not feeling well in general. Patient was seen here on 12/30/19 and diagnosed with pyelonephritis, sepsis, and IV methamphetamine use and polysubstance abuse. She was COVID negative on 12/30/19. She was admitted to Dr. Agee but left AMA on 12/31/19. Patient states that she did not fill her antibiotic prescription after leaving AMA. She is unsure if she has had fever or chills. She admits to hematuria and thinks she may be starting her period. Last used methamphetamine 4 days ago and admits she may be having some withdrawal symptoms. Onset: Gradual Duration: Constant Location: Reports: Chest Quality: Reports: Ache Severity: Severe Improves with: Reports: None Worsens with: Reports: None Associated Symptoms: Reports: No Other Symptoms Left Chest Pain Score (Numeric/FACES): 10 - Related Data Allergies Allergy/AdvReac Type Severity Reaction Status Date / Time amoxicillin [Amoxicillin] Allergy Unknown Rash Verified 01/05/20 17:57 penicillin G Allergy Unknown Hives Verified 01/05/20 17:57 Home Meds: Home Meds . 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 Only 1 care visit in [place] Musculoskeletal History: Reports: None Neurological History: Reports: None Psychiatric History: Reports: Addiction, Anxiety, Other (See Below) Other Psychiatric History: drug use, 3 children in [facility] Endocrine/Metabolic History: Reports: None Hematologic History: Reports: None Immunologic History: Reports: None Oncologic (Cancer) History: Reports: None Dermatologic History: Reports: Other (See Below) Other Dermatologic History: scarring/scabs to bilateral ACs from iv drug use - Infectious Disease History Infectious Disease History: Reports: Herpes - Past Surgical History Head Surgeries/Procedures: Reports: None Female Surgical History: Reports: Section - Past Imaging History Past Imaging History: Reports: Ultrasound (01/07/2016 22 week Ultrasound EDC: 05/08/2016) Social & Family History - Family History Family Medical History: Noncontributory HEENT: Reports: None Cardiac: Reports: Aneurysm, Heart Valve Replacement, Hypertension Respiratory: Reports: None GI: Reports: None : Reports: None OBGYN: Reports: None Musculoskeletal: Reports: None Neurological: Reports: CVA Psychiatric: Reports: None Endocrine/Metabolic: Reports: Diabetes, type II Hematologic: Reports: None Immunologic: Reports: None Dermatologic: Reports: None Oncologic: Reports: None - Caffeine Use Caffeine Use: Reports: Soda - Living Situation & Occupation Living situation: Reports: Other Occupation: Unemployed ED ROS GENERAL - Review of Systems Review Of Systems: Comprehensive ROS is negative, except as noted in HPI. ED EXAM, GENERAL - Physical Exam Exam: See Below Exam Limited By: No Limitations General Appearance: Alert, WD/WN, Anxious, Mild Distress, Other (uncomfortable but nontoxic appearing. ) Eye Exam: Bilateral Eye: Normal Inspection (no scleral icterus) Nose: Normal Inspection, Normal Mucosa, No Blood Throat/Mouth: Normal Lips, Normal Oropharynx, Normal Voice, No Airway Compromise, Other (dry oral membranes) Head: Atraumatic, Normocephalic Neck: Normal Inspection, Supple, Non-Tender, Full Range of Motion, Other (no nuchal rigidity). No: Limited Range of Motion, Lymphadenopathy (L) Respiratory/Chest: No Respiratory Distress, Lungs Clear, Normal Breath Sounds, No Accessory Muscle Use, Other (upper left chest wall tenderness with no visible erythema, swelling or bruising. ). No: Crackles, Rales, Rhonchi, Wheezing Cardiovascular: Normal Peripheral Pulses, Regular Rate, Rhythm, No Edema GI/Abdominal: Normal Bowel Sounds, Soft, Non-Tender, No Organomegaly, No Distention, No Abnormal Bruit, No Mass Back Exam: Full Range of Motion, CVA Tenderness (L). No: CVA Tenderness (R) Extremities: Normal Range of Motion, Non-Tender, No Pedal Edema, Normal Capillary Refill, Other (extensive needle tack ro on bilateral upper extremities) Neurological: Alert, Oriented, CN II-XII Intact, Normal Cognition, Normal Gait, No Motor/Sensory Deficits Psychiatric: Anxious, Tearful, Other (not suicidal ) Skin Exam: Warm, Dry, Intact, Normal Color, No Rash EKG INTERPRETATION EKG Date: 01/05/20 Time: 18:12 Rhythm: Other (sinus rhythm) Rate (Beats/Min): 87 [place]: Normal P-Wave: Present QRS: Normal ST-T: Normal QT: Normal Course - Re-Assessments/Exams Free Text/Narrative Re-Assessment/Exam: 01/05/20 19:00 Care of pt transferred to Livier GRAMAJO at shift change. Departure - Departure Disposition: Home, Self-Care 01 Clinical Impression: Methamphetamine abuse UTI (urinary tract infection) Qualifiers: Urinary tract infection type: site unspecified Hematuria presence: without hematuria Qualified Code(s): N39.0 - Urinary tract infection, site not specified - Discharge Information Instructions: Stimulant Use Disorder-Methamphetamines Forms: ED Department Discharge Additional Instructions: increase fluids clindamycin 150mg 2 three times daily for one week rest avoid caffeine stimulants, meth follow up clinic later this week if not improving alternate tylenol 650mg and ibuprofen 600mg every 4-6 hours as needed for discomfort Sepsis Event Note (ED) - Evaluation Sepsis Screening Result: No Definite Risk <Roxanna Rodriguez - Last Filed: 01/06/20 03:03> Course - Vital Signs Last Recorded V/S: Last Vital Signs Temp 98 F 01/05/20 21:46 Pulse 98 01/05/20 21:46 Resp 18 01/05/20 21:46 BP 133/96 H 01/05/20 21:46 Pulse Ox 100 01/05/20 21:46 - Orders/Labs/Meds Orders: Active Orders 24 hr Category Date Time Status Blood Glucose Check, Bedside [RC] ONETIME Care 01/05/20 20:10 Active EKG 12 Lead [EKG Documentation Completion] [RC] STAT Care 01/05/20 18:09 Ac tive Peripheral IV Care [RC] . DIRECTED Care 01/05/20 18:10 Active CHLAMYDIA AND GONORRHEA BY TMA Routine Lab 01/05/20 18:14 Received CULTURE BLOOD [BC] Stat Lab 01/05/20 18:40 Results CULTURE BLOOD [BC] Stat Lab 01/05/20 19:00 Received Blood Culture x2 Reflex Set [OM.PC] Stat Oth 01/05/20 18:09 Ordered Peripheral IV Insertion Adult [OM.PC] Stat Oth 01/05/20 18:08 Ordered Labs: Laboratory Tests 01/05/20 01/05/20 01/05/20 Range/Units 18:14 18:14 18:14 WBC (5.0-10.0) 10^3/uL RBC (4.2-5.4) 10^6/uL Hgb (12.0-16.0) g/dL Hct (37.0-47.0) % MCV (80-100) fL MCH (27.0-34.0) pg MCHC (33.0-35.0) g/dL Plt Count (150-450) 10^3/uL Neut % (Auto) (42.2-75.2) % Lymph % (Auto) (20.5-50.1) % [place] % (Auto) (2-8) % Eos % (Auto) (1.0-3.0) % Baso % (Auto) (0.0-1.0) % Sodium (136-145) mmol/L Potassium (3.5-5.1) mmol/L Chloride (98-107) mmol/L Carbon Dioxide (21-32) mmol/L Anion Gap (7-13) mEq/L BUN (7-18) mg/dL Creatinine (0.55-1.02) mg/dL Est Cr Clr Drug Dosing mL/min Estimated GFR (MDRD) BUN/Creatinine Ratio (No establ ref range) Glucose (74-99) mg/dL POC Glucose (70-105) mg/dl Lactic Acid (0.4-2.0) mmol/L Calcium (8.5-10.1) mg/dL Total Bilirubin (0.2-1.0) mg/dL AST (15-37) U/L ALT (14-59) U/L Alkaline Phosphatase (46-116) U/L Troponin I (0.000-0.056) ng/mL Total Protein (6.4-8.2) g/dL Albumin (3.4-5.0) g/dL Globulin Albumin/Globulin Ratio Amylase (25-115) U/L Lipase (73-393) U/L Urine Color Yellow (YELLOW) Urine Appearance Slightly cloudy (CLEAR) Urine pH 7.0 (5.0-9.0) Ur Specific Era 1.025 (1.005-1.030) Urine Protein Negative (NEGATIVE) Urine Glucose (UA) Negative (NEGATIVE) Urine Ketones Negative (NEGATIVE) Urine Occult Blood Trace-intact H (NEGATIVE) Urine Nitrite Negative (NEGATIVE) Urine Bilirubin Negative (NEGATIVE) Urine Urobilinogen 0.2 (0.2-1.0) mg/dL Ur Leukocyte Esterase Negative (NEGATIVE) Urine RBC 0-5 /HPF Urine WBC 0-5 (0-5/HPF) /HPF Ur Epithelial Cells Many H (NOT SEEN) /HPF Urine Bacteria Moderate H (0-FEW/HPF) /HPF Urine Mucus Moderate H (NOT SEEN) /LPF Urine Other See note Urine HCG, Qual Negative Urine Opiates Screen Negative (NEGATIVE) Ur Oxycodone Screen Negative (NEGATIVE) Urine Methadone Screen Negative (NEGATIVE) Ur Barbiturates Screen Negative (NEGATIVE) U Tricyclic Antidepress Negative (NEGATIVE) Ur Phencyclidine Scrn Negative (NEGATIVE) Ur Amphetamine Screen Positive H (NEGATIVE) U Methamphetamines Scrn Positive H (NEGATIVE) Urine MDMA Screen Negative (NEGATIVE) U Benzodiazepines Scrn Negative (NEGATIVE) Urine Cocaine Screen Negative (NEGATIVE) U Marijuana (THC) Screen Negative (NEGATIVE) 01/05/20 01/05/20 01/05/20 Range/Units 18:40 19:00 19:00 WBC 9.3 (5.0-10.0) 10^3/uL RBC 4.75 (4.2-5.4) 10^6/uL Hgb 14.1 (12.0-16.0) g/dL Hct 42.0 (37.0-47.0) % MCV 88.4 (80-100) fL MCH 29.7 (27.0-34.0) pg MCHC 33.6 (33.0-35.0) g/dL Plt Count 485 H D (150-450) 10^3/uL Neut % (Auto) 61.6 (42.2-75.2) % Lymph % (Auto) 26.0 (20.5-50.1) % [place] % (Auto) 10.7 H (2-8) % Eos % (Auto) 1.4 (1.0-3.0) % Baso % (Auto) 0.3 (0.0-1.0) % Sodium 139 (136-145) mmol/L Potassium 3.6 (3.5-5.1) mmol/L Chloride 100 (98-107) mmol/L Carbon Dioxide 29 (21-32) mmol/L Anion Gap 13.6 H (7-13) mEq/L BUN 4 L (7-18) mg/dL Creatinine 0.79 (0.55-1.02) mg/dL Est Cr Clr Drug Dosing 105.04 mL/min Estimated GFR (MDRD) > 60 BUN/Creatinine Ratio 5.1 (No establ ref range) Glucose 60 L (74-99) mg/dL POC Glucose (70-105) mg/dl Lactic Acid 1.6 (0.4-2.0) mmol/L Calcium 8.7 (8.5-10.1) mg/dL Total Bilirubin 0.3 (0.2-1.0) mg/dL AST 62 H (15-37) U/L ALT 73 H (14-59) U/L Alkaline Phosphatase 71 (46-116) U/L Troponin I < 0.017 (0.000-0.056) ng/mL Total Protein 8.5 H (6.4-8.2) g/dL Albumin 3.4 (3.4-5.0) g/dL Globulin 5.1 Albumin/Globulin Ratio 0.7 Amylase 81 (25-115) U/L Lipase 300 (73-393) U/L Urine Color (YELLOW) Urine Appearance (CLEAR) Urine pH (5.0-9.0) Ur Specific Era (1.005-1.030) Urine Protein (NEGATIVE) Urine Glucose (UA) (NEGATIVE) Urine Ketones (NEGATIVE) Urine Occult Blood (NEGATIVE) Urine Nitrite (NEGATIVE) Urine Bilirubin (NEGATIVE) Urine Urobilinogen (0.2-1.0) mg/dL Ur Leukocyte Esterase (NEGATIVE) Urine RBC /HPF Urine WBC (0-5/HPF) /HPF Ur Epithelial Cells (NOT SEEN) /HPF Urine Bacteria (0-FEW/HPF) /HPF Urine Mucus (NOT SEEN) /LPF Urine Other Urine HCG, Qual Urine Opiates Screen (NEGATIVE) Ur Oxycodone Screen (NEGATIVE) Urine Methadone Screen (NEGATIVE) Ur Barbiturates Screen (NEGATIVE) U Tricyclic Antidepress (NEGATIVE) Ur Phencyclidine Scrn (NEGATIVE) Ur Amphetamine Screen (NEGATIVE) U Methamphetamines Scrn (NEGATIVE) Urine MDMA Screen (NEGATIVE) U Benzodiazepines Scrn (NEGATIVE) Urine Cocaine Screen (NEGATIVE) U Marijuana (THC) Screen (NEGATIVE) 01/05/20 Range/Units 20:17 WBC (5.0-10.0) 10^3/uL RBC (4.2-5.4) 10^6/uL Hgb (12.0-16.0) g/dL Hct (37.0-47.0) % MCV (80-100) fL MCH (27.0-34.0) pg MCHC (33.0-35.0) g/dL Plt Count (150-450) 10^3/uL Neut % (Auto) (42.2-75.2) % Lymph % (Auto) (20.5-50.1) % [place] % (Auto) (2-8) % Eos % (Auto) (1.0-3.0) % Baso % (Auto) (0.0-1.0) % Sodium (136-145) mmol/L Potassium (3.5-5.1) mmol/L Chloride (98-107) mmol/L Carbon Dioxide (21-32) mmol/L Anion Gap (7-13) mEq/L BUN (7-18) mg/dL Creatinine (0.55-1.02) mg/dL Est Cr Clr Drug Dosing mL/min Estimated GFR (MDRD) BUN/Creatinine Ratio (No establ ref range) Glucose (74-99) mg/dL POC Glucose 85 (70-105) mg/dl Lactic Acid (0.4-2.0) mmol/L Calcium (8.5-10.1) mg/dL Total Bilirubin (0.2-1.0) mg/dL AST (15-37) U/L ALT (14-59) U/L Alkaline Phosphatase (46-116) U/L Troponin I (0.000-0.056) ng/mL Total Protein (6.4-8.2) g/dL Albumin (3.4-5.0) g/dL Globulin Albumin/Globulin Ratio Amylase (25-115) U/L Lipase (73-393) U/L Urine Color (YELLOW) Urine Appearance (CLEAR) Urine pH (5.0-9.0) Ur Specific Era (1.005-1.030) Urine Protein (NEGATIVE) Urine Glucose (UA) (NEGATIVE) Urine Ketones (NEGATIVE) Urine Occult Blood (NEGATIVE) Urine Nitrite (NEGATIVE) Urine Bilirubin (NEGATIVE) Urine Urobilinogen (0.2-1.0) mg/dL Ur Leukocyte Esterase (NEGATIVE) Urine RBC /HPF Urine WBC (0-5/HPF) /HPF Ur Epithelial Cells (NOT SEEN) /HPF Urine Bacteria (0-FEW/HPF) /HPF Urine Mucus (NOT SEEN) /LPF Urine Other Urine HCG, Qual Urine Opiates Screen (NEGATIVE) Ur Oxycodone Screen (NEGATIVE) Urine Methadone Screen (NEGATIVE) Ur Barbiturates Screen (NEGATIVE) U Tricyclic Antidepress (NEGATIVE) Ur Phencyclidine Scrn (NEGATIVE) Ur Amphetamine Screen (NEGATIVE) U Methamphetamines Scrn (NEGATIVE) Urine MDMA Screen (NEGATIVE) U Benzodiazepines Scrn (NEGATIVE) Urine Cocaine Screen (NEGATIVE) U Marijuana (THC) Screen (NEGATIVE) Meds: Medications Discontinued Medications Generic Name Dose Route Start Last Admin Trade Name Freq PRN Reason Stop Dose Admin Clindamycin HCl 300 mg 01/05/20 21:38 01/05/20 21:50 Cleocin PO 01/05/20 21:39 300 mg ONETIME ONE Administration Sodium Chloride 1,000 mls @ 999 mls/hr 01/05/20 18:10 01/05/20 19:08 Normal Saline IV 01/05/20 19:10 999 mls/hr .BOLUS ONE Administration Ketorolac Tromethamine 30 mg 01/05/20 18:10 01/05/20 19:09 Toradol IVPUSH 01/05/20 18:11 30 mg ONETIME ONE Administration Levofloxacin 500 mg 01/05/20 20:18 01/05/20 21:50 Levaquin PO 01/05/20 20:19 500 mg ONETIME ONE Administration Lorazepam 1 mg 01/05/20 18:32 01/05/20 19:11 Ativan IVPUSH 01/05/20 18:33 1 mg ONETIME ONE Administration Sodium Chloride 10 ml 01/05/20 18:08 01/05/20 19:11 Saline Flush FLUSH 10 ml ASDIRECTED PRN Administration Keep Vein Open - Re-Assessments/Exams Free Text/Narrative Re-Assessment/Exam: Patient had been resting calmly prior to discharge. Informed needed to follow up in clinic for recheck and to set up ultrasound to rule out endocarditis as had been discussed by Dr Agee prior. Patient requesting additional ativan. Does not appear in distress at that time. Informed she should go home and rest If desires to quit meth use contact [facility] for additional support and possible treatment. saome agitation when informed would not be receiving additional ativan to go home with. Departure - Departure Time of Disposition: 21:39 Condition: Good - Discharge Information *PRESCRIPTION DRUG MONITORING PROGRAM REVIEWED*: No *COPY OF PRESCRIPTION DRUG MONITORING REPORT IN PATIENT YASMEEN: No Sepsis Event Note (ED) - Focused Exam Vital Signs: Vital Signs Temp Pulse Resp BP Pulse Ox 01/05/20 21:46 98 F 98 18 133/96 H 100 01/05/20 18:00 97.0 F 93 20 126/90 100 - My Orders Last 24 Hours: My Active Orders 01/05/20 20:10 Blood Glucose Check, Bedside [RC] ONETIME - Assessment/Plan Last 24 Hours: My Active Orders 01/05/20 20:10 Blood Glucose Check, Bedside [RC] ONETIME I have read and agree with the documentation that has been completed regarding this visit. By signing this record, I attest that the documentation was complete d in my physical presence and is an accurate record of the encounter.
--- NOTE | 2020-01-05 19:10 | CR ---
PROCEDURE INFORMATION: Exam: XR Chest, 2 Views Exam date and time: 01/05/2020 6:44 PM Age: 29 years old Clinical indication: Other: Pain; Additional info: Sharp left sided chest pain--chronic iv meth user TECHNIQUE: Imaging protocol: XR of the chest Views: 2 views. COMPARISON: CT Chest w Cont 12/30/2019 3:14 PM FINDINGS: Lungs: Unremarkable. No consolidation. Pleural space: Unremarkable. No pleural effusion. No pneumothorax. Heart/Mediastinum: Unremarkable. No cardiomegaly. Bones/joints: Unremarkable. IMPRESSION: No acute findings.
[2020-01-05 19:49] LABS: ANION GAP 13.6 mEq/L (7-13); CHLORIDE,CL 100 mmol/L (98-107); SODIUM,NA 139 mmol/L (136-145)
[2020-01-05] MEDS ORDERED: Levofloxacin 500 MG Tab PO ONE (20:18)
[2020-01-05] MEDS ORDERED: Clindamycin HCl 150 MG Cap PO ONE (21:38)
[2020-01-05 21:48] VITALS: BP 133/96; PULSE 98
== END 2020-01-05 21:55 | disposition home or self-care (01) ==
LOC: DL.ED 17:49
DX: N39.0 Urinary tract infection, site not specified (principal); F15.10 Other stimulant abuse, uncomplicated; I10 Essential (primary) hypertension; Z88.1 Allergy status to other antibiotic agents; Z88.0 Allergy status to penicillin
CPT/HCPCS: 36415; 71046; 80053; 80305; 81001; 81025; 82150; 82962; 83605; 83690; 84484; 85025; 87040; 87491; 87591; 93005; 96374; 96375; 99285; A9270; J1885; J2060; J7030

== ENCOUNTER 2020-01-06 11:19 | Inpatient (IN) | payer MEDICAID ==
[2020-01-06] MEDS ORDERED: Docusate Sodium 100 MG Cap PO PRN (11:36)
[2020-01-06] MEDS ORDERED: Ondansetron 4 MG Tab.DIS PO PRN (11:36)
[2020-01-06] MEDS: LORazepam 1 MG Tab PO PRN ×3 (12:17→22:22)
--- NOTE | 2020-01-06 12:46 | PCM.HP ---
H&P History of Present Illness - General Date of Service: 01/06/20 Admit Problem/Dx: Admission Diagnosis/Problem Admission Diagnosis/Problem Bacteremia Source of Information: Patient - History of Present Illness Initial Comments - Free Text/Narative: 29-year-old with history of IV drug use who recently was hospitalized and was found to have MRSA bacteremia on repeated cultures. The patient was called for further antibiotic therapy. She was treated for UTI last time. She was complaining of left-sided chest wall pain. That continues. Moderate, for weeks, not associated with shortness of breath. Worse with some movements of the shoulder. Denies fever, cough - Related Data Allergies/Adverse Reactions: Allergies Allergy/AdvReac Type Severity Reaction Status Date / Time amoxicillin [Amoxicillin] Allergy Unknown Rash Verified 01/05/20 17:57 penicillin G Allergy Unknown Hives Verified 01/05/20 17:57 Home Medications: Home Meds . 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 Only 1 care visit in [place] Musculoskeletal History: Reports: None Neurological History: Reports: None Psychiatric History: Reports: Addiction, Anxiety, Other (See Below) Other Psychiatric History: drug use, 3 children in [facility] Endocrine/Metabolic History: Reports: None Hematologic History: Reports: None Immunologic History: Reports: None Oncologic (Cancer) History: Reports: None Dermatologic History: Reports: Other (See Below) Other Dermatologic History: scarring/scabs to bilateral ACs from iv drug use - Infectious Disease History Infectious Disease History: Reports: Herpes - Past Surgical History Head Surgeries/Procedures: Reports: None Female Surgical History: Reports: Section - Past Imaging History Past Imaging History: Reports: Ultrasound (01/07/2016 22 week Ultrasound EDC: 05/08/2016) Social & Family History - Family History Family Medical History: Noncontributory HEENT: Reports: None Cardiac: Reports: Aneurysm, Heart Valve Replacement, Hypertension Respiratory: Reports: None GI: Reports: None : Reports: None OBGYN: Reports: None Musculoskeletal: Reports: None Neurological: Reports: CVA Psychiatric: Reports: None Endocrine/Metabolic: Reports: Diabetes, type II Hematologic: Reports: None Immunologic: Reports: None Dermatologic: Reports: None Oncologic: Reports: None - Caffeine Use Caffeine Use: Reports: Soda - Living Situation & Occupation Living situation: Reports: Other Occupation: Unemployed H&P Review of Systems - Review of Systems: Review Of Systems: See Below General: Denies: Fever, Chills Pulmonary: Denies: Shortness of Breath Cardiovascular: Reports: Chest Pain (Left upper chest, shoulder area) Gastrointestinal: Denies: Abdominal Pain Genitourinary: Denies: Dysuria Musculoskeletal: Reports: Shoulder Pain Psychiatric: Denies: Confusion (Left side) Exam - Exam Exam: See Below - Vital Signs Vital Signs: Last Vital Signs Temp 97.1 F 01/06/20 11:36 Pulse 97 01/06/20 11:36 Resp 18 01/06/20 11:36 BP 126/84 01/06/20 11:36 Pulse Ox 100 01/06/20 11:36 - Exam General: Alert, Oriented Neck: Supple Lungs: Clear to Auscultation, Normal Respiratory Effort Cardiovascular: Regular Rate, Regular Rhythm GI/Abdominal Exam: Normal Bowel Sounds, Soft, Non-Tender Extremities: No Pedal Edema Skin: Warm, Dry Neuro Extensive - Mental Status: Alert, Oriented x3 Psychiatric: Alert, Anxious - Patient Data Lab Results Last 24 hrs: UA and blood cultures grew MSSA - Problem List (1) Bacteremia SNOMED Code(s): 9136167 ICD Code: R78.81 - BACTEREMIA Status: Acute Current Visit: No (2) Methamphetamine abuse SNOMED Code(s): 944171621 ICD Code: F15.10 - OTHER STIMULANT ABUSE, UNCOMPLICATED Status: Acute Current Visit: No (3) Opioid abuse SNOMED Code(s): 9708860 ICD Code: F11.10 - OPIOID ABUSE, UNCOMPLICATED Status: Acute Current Visit: No (4) UTI (urinary tract infection) SNOMED Code(s): 36710018 ICD Code: N39.0 - URINARY TRACT INFECTION, SITE NOT SPECIFIED Status: Acute Current Visit: No Problem List Initiated/Reviewed/Updated: Yes Orders Last 24hrs: Active Orders 24 hr Category Date Time Status Patient Status [ADT] Routine ADT 01/06/20 11:36 Active Oxygen Therapy [RC] PRN Care 01/06/20 11:36 Active Peripheral IV Care [RC] . DIRECTED Care 01/06/20 11:37 Active Up With Assistance [RC] ASDIRECTED Care 01/06/20 11:36 Active VTE/DVT Education [RC] PER UNIT ROUTINE Care 01/06/20 11:36 Active Vital Signs [RC] Q4H Care 01/06/20 11:36 Active Regular Diet [DIET] Diet 01/06/20 Lunch Active BASIC METABOLIC PANEL,BMP [CHEM] Routine Lab 01/06/20 11:40 Ordered CBC WITH AUTO DIFF [HEME] Routine Lab 01/06/20 11:40 Ordered CULTURE BLOOD [BC] Stat Lab 01/06/20 11:41 Ordered CULTURE BLOOD [BC] Stat Lab 01/06/20 11:41 Ordered Acetaminophen [Tylenol] Med 01/06/20 11:36 Active 650 mg PO Q4H PRN Docusate Sodium [Colace] Med 01/06/20 11:36 Active 100 mg PO BID PRN Heparin Sodium Med 01/06/20 14:00 Active 5,000 units SUBCUT Q8HR Ibuprofen [Motrin] Med 01/06/20 11:36 Active 400 mg PO Q6H PRN LORazepam [Ativan] Med 01/06/20 11:38 Active 1 mg PO Q4H PRN Ondansetron [Zofran ODT] Med 01/06/20 11:36 Active 4 mg PO Q6H PRN Pharmacy to Dose - Vancomycin Med 01/06/20 11:45 Pending 1 dose .XX ASDIRECTED Sodium Chloride 0.9% [Saline Flush] Med 01/06/20 11:36 Active 10 ml FLUSH ASDIRECTED PRN Zolpidem [Ambien] Med 01/06/20 21:00 Active 5 mg PO BEDTIME PRN Blood Culture x2 Reflex Set [OM.PC] Stat Oth 01/06/20 11:41 Ordered Peripheral IV Insertion Adult [OM.PC] Routine Oth 01/06/20 11:36 Ordered Saline Lock Insert [OM.PC] Routine Oth 01/06/20 11:36 Ordered Resuscitation Status Routine Resus Stat 01/06/20 11:36 Ordered Medication Orders Acetaminophen (Tylenol) 650 mg PO Q4H PRN PRN Reason: Pain (Mild 1-3)/fever Docusate Sodium (Colace) 100 mg PO BID PRN PRN Reason: Constipation Heparin Sodium (Porcine) (Heparin Sodium) 5,000 units SUBCUT Q8HR DONY Ibuprofen (Motrin) 400 mg PO Q6H PRN PRN Reason: Pain (moderate 4-6) Lorazepam (Ativan) 1 mg PO Q4H PRN PRN Reason: anxiety, withdrawal Last Admin: 01/06/20 12:17 Dose: 1 mg Documented by: YESSENIA Ondansetron HCl (Zofran Odt) 4 mg PO Q6H PRN PRN Reason: nausea, able to take PO Sodium Chloride (Saline Flush) 10 ml FLUSH ASDIRECTED PRN PRN Reason: Keep Vein Open Vancomycin HCl (Pharmacy To Dose - Vancomycin) 1 dose .XX ASDIRECTED DONY Zolpidem Tartrate (Ambien) 5 mg PO BEDTIME PRN PRN Reason: Sleep Assessment/Plan Comment:: 29-year-old with a history of injected IV use presented with MSSA bacteremia MSSA bacteremia She has a history of penicillin allergy We will obtain 2 blood cultures Repeat urine culture Start the patient on IV vancomycin Arrange ID consult Left chest, shoulder pain We'll try to avoid narcotics History of amphetamine, opiate use We'll follow for withdrawal Ativan for anxiety DVT prophylaxis with subcutaneous heparin
[2020-01-06] MEDS: Ibuprofen 400 MG Tab PO PRN ×2 (13:03→20:27)
[2020-01-06 13:05] LABS: ANION GAP 11.5 mEq/L (7-13); CHLORIDE,CL 102 mmol/L (98-107); SODIUM,NA 137 mmol/L (136-145)
[2020-01-06] MEDS: Heparin Sodium 5,000 Units/ML Vial SUBCUT SCH ×2 (14:25→22:22)
[2020-01-06] MEDS: Sodium Chloride 0.9% 10 ML Syringe FLUSH PRN ×2 (14:25→22:11)
[2020-01-06] MEDS: Acetaminophen 325 MG Tab PO PRN ×2 (15:39→22:22)
[2020-01-06] MEDS: Zolpidem 5 MG Tab PO PRN (20:39)
[2020-01-07] MEDS: Sodium Chloride 0.9% 10 ML Syringe FLUSH PRN (05:31)
[2020-01-07] MEDS: Heparin Sodium 5,000 Units/ML Vial SUBCUT SCH ×3 (05:36→21:01)
[2020-01-07] MEDS: LORazepam 1 MG Tab PO PRN ×4 (09:39→23:46)
[2020-01-07] MEDS: Ibuprofen 400 MG Tab PO PRN ×2 (09:40→18:16)
[2020-01-07] MEDS: Acetaminophen 325 MG Tab PO PRN ×2 (09:40→18:17)
--- NOTE | 2020-01-07 11:53 | PCM.PN ---
- General Info Date of Service: 01/07/20 Subjective Update: The patient continues to have left-sided chest, shoulder pain. Pain is moderate to severe, worse with movements, touching the area. No associated redness. No cough, no shortness of breath, no nausea or vomiting. No urinary burning. Functional Status: Denies: Pain Controlled - Review of Systems General: Denies: Fever Pulmonary: Denies: Shortness of Breath Cardiovascular: Reports: Chest Pain Gastrointestinal: Denies: Abdominal Pain Genitourinary: Denies: Dysuria Neurological: Denies: Confusion Psychiatric: Reports: Anxiety - Patient Data Vitals - Most Recent: Last Vital Signs Temp 98.5 F 01/07/20 07:48 Pulse 87 01/07/20 07:48 Resp 16 01/07/20 07:48 BP 110/75 01/07/20 07:48 Pulse Ox 100 01/07/20 07:48 Weight - Most Recent: 182 lb 3.2 oz I&O - Last 24 Hours: Intake & Output 01/06/20 01/07/20 01/07/20 22:59 06:59 14:59 Intake Total 1000 250 480 Balance 1000 250 480 Lab Results Last 24 Hours: Laboratory Results - last 24 hr 01/06/20 01/06/20 Range/Units 12:30 12:30 WBC 9.5 (5.0-10.0) 10^3/uL RBC 4.05 L (4.2-5.4) 10^6/uL Hgb 12.2 D (12.0-16.0) g/dL Hct 36.2 L (37.0-47.0) % MCV 89.4 (80-100) fL MCH 30.1 (27.0-34.0) pg MCHC 33.7 (33.0-35.0) g/dL Plt Count 480 H (150-450) 10^3/uL Neut % (Auto) 70.5 (42.2-75.2) % Lymph % (Auto) 19.9 L (20.5-50.1) % [place] % (Auto) 7.9 (2-8) % Eos % (Auto) 1.2 (1.0-3.0) % Baso % (Auto) 0.5 (0.0-1.0) % Sodium 137 (136-145) mmol/L Potassium 3.5 (3.5-5.1) mmol/L Chloride 102 (98-107) mmol/L Carbon Dioxide 27 (21-32) mmol/L Anion Gap 11.5 (7-13) mEq/L BUN 6 L (7-18) mg/dL Creatinine 0.76 (0.55-1.02) mg/dL Est Cr Clr Drug Dosing 109.19 mL/min Estimated GFR (MDRD) > 60 Glucose 110 H (74-99) mg/dL Calcium 8.1 L (8.5-10.1) mg/dL Med Orders - Current: Current Medications Acetaminophen (Tylenol) 650 mg PO Q4H PRN PRN Reason: Pain (Mild 1-3)/fever Last Admin: 01/07/20 09:40 Dose: 650 mg Documented by: Docusate Sodium (Colace) 100 mg PO BID PRN PRN Reason: Constipation Heparin Sodium (Porcine) (Heparin Sodium) 5,000 units SUBCUT Q8HR [facility] Last Admin: 01/07/20 05:36 Dose: Not Given Documented by: Vancomycin HCl 1 gm/ Sodium (Chloride) 250 mls @ 166.667 mls/hr IV Q8HR [facility] Last Admin: 01/07/20 05:31 Dose: 166.667 mls/hr Documented by: Ibuprofen (Motrin) 400 mg PO Q6H PRN PRN Reason: Pain (moderate 4-6) Last Admin: 01/07/20 09:40 Dose: 400 mg Documented by: Lorazepam (Ativan) 1 mg PO Q4H PRN PRN Reason: anxiety, withdrawal Last Admin: 01/07/20 09:39 Dose: 1 mg Documented by: Ondansetron HCl (Zofran Odt) 4 mg PO Q6H PRN PRN Reason: nausea, able to take PO Sodium Chloride (Saline Flush) 10 ml FLUSH ASDIRECTED PRN PRN Reason: Keep Vein Open Last Admin: 01/07/20 05:31 Dose: 10 ml Documented by: Vancomycin HCl (Pharmacy To Dose - Vancomycin) 0 dose .XX ASDIRECTED [facility] Zolpidem Tartrate (Ambien) 5 mg PO BEDTIME PRN PRN Reason: Sleep Last Admin: 01/06/20 20:39 Dose: 5 mg Documented by: - Exam Quality Assessment: No: Supplemental Oxygen General: Alert, Oriented Neck: Supple Lungs: Clear to Auscultation, Normal Respiratory Effort Cardiovascular: Regular Rate, Regular Rhythm GI/Abdominal Exam: Normal Bowel Sounds, Soft, Non-Tender Extremities: No Pedal Edema Skin: Warm Neurological: No New Focal Deficit Psy/Mental Status: Alert, Normal Affect, Normal Mood Sepsis Event Note - Evaluation Sepsis Screening Result: No Definite Risk - Focused Exam Vital Signs: Vital Signs Temp Pulse Resp BP Pulse Ox 01/07/20 07:48 98.5 F 87 16 110/75 100 01/07/20 05:00 99 F 81 20 111/70 99 - Problem List & Annotations (1) Bacteremia SNOMED Code(s): 3870463 Code(s): R78.81 - BACTEREMIA Status: Acute Current Visit: No (2) Methamphetamine abuse SNOMED Code(s): 363430703 Code(s): F15.10 - OTHER STIMULANT ABUSE, UNCOMPLICATED Status: Acute Current Visit: No (3) Opioid abuse SNOMED Code(s): 2134768 Code(s): F11.10 - OPIOID ABUSE, UNCOMPLICATED Status: Acute Current Visit: No (4) UTI (urinary tract infection) SNOMED Code(s): 01087716 Code(s): N39.0 - URINARY TRACT INFECTION, SITE NOT SPECIFIED Status: Acute Current Visit: No - Problem List Review Problem List Initiated/Reviewed/Updated: Yes - My Orders Last 24 Hours: My Active Orders 01/06/20 11:36 Patient Status [ADT] Routine Oxygen Therapy [RC] PRN Up With Assistance [RC] ASDIRECTED VTE/DVT Education [RC] PER UNIT ROUTINE Vital Signs [RC] 00,04,08,12,16,20 Acetaminophen [Tylenol] 650 mg PO Q4H PRN Docusate Sodium [Colace] 100 mg PO BID PRN Ibuprofen [Motrin] 400 mg PO Q6H PRN Ondansetron [Zofran ODT] 4 mg PO Q6H PRN Sodium Chloride 0.9% [Saline Flush] 10 ml FLUSH ASDIRECTED PRN Peripheral IV Insertion Adult [OM.PC] Routine Saline Lock Insert [OM.PC] Routine Resuscitation Status Routine 01/06/20 11:37 Peripheral IV Care [RC] 01/06/20 11:38 LORazepam [Ativan] 1 mg PO Q4H PRN 01/06/20 11:41 Blood Culture x2 Reflex Set [OM.PC] Stat 01/06/20 11:45 Pharmacy to Dose - Vancomycin 0 dose .XX ASDIRECTED 01/06/20 Lunch Regular Diet [DIET] 01/06/20 12:30 CULTURE BLOOD [BC] Stat 01/06/20 12:35 CULTURE BLOOD [BC] Stat 01/06/20 14:00 Heparin Sodium 5,000 units SUBCUT Q8HR Vancomycin 1 gm Sodium Chloride 0.9% [Normal Saline] 250 ml IV Q8HR 01/06/20 21:00 Zolpidem [Ambien] 5 mg PO BEDTIME PRN 01/07/20 10:55 Echo Comp wo Cont [US] Routine 01/07/20 10:57 Consult to Physician [CONS] Routine 01/07/20 10:58 Notify Provider Consults [RC] ASDIRECTED 01/07/20 21:30 VANCOMYCIN TROUGH [CHEM] Timed - Plan Plan:: 29-year-old with a history of injected IV use presented with MSSA bacteremia MSSA bacteremia She has a history of penicillin allergy (hives, rash) BCx: 12/28, 12/29 Staph Aureus BCx 01/05: pending Repeat urine culture Started the patient on IV vancomycin called dr. Toledo for ID consult Left chest, shoulder pain reviewed CT chest 12/29 - no acute findings likely musculoskeletal pain We'll try to avoid narcotics use motrin, tylenol History of amphetamine, opiate use We'll follow for withdrawal Ativan for anxiety DVT prophylaxis with subcutaneous heparin
[2020-01-07] MEDS: Lidocaine 5% 700 MG Patch TOP SCH (15:13)
[2020-01-07] MEDS: Zolpidem 5 MG Tab PO PRN (20:56)
[2020-01-08] MEDS: Acetaminophen 325 MG Tab PO PRN ×3 (04:14→12:40)
[2020-01-08] MEDS: LORazepam 1 MG Tab PO PRN ×3 (04:14→12:41)
[2020-01-08] MEDS: Ibuprofen 400 MG Tab PO PRN ×2 (04:15→12:41)
[2020-01-08] MEDS: Heparin Sodium 5,000 Units/ML Vial SUBCUT SCH ×2 (05:14→13:46)
[2020-01-08] MEDS: Sodium Chloride 0.9% 10 ML Syringe FLUSH PRN (05:33)
[2020-01-08 08:59] VITALS: BP 126/80; PULSE 94
[2020-01-08] MEDS: Lidocaine 5% 700 MG Patch TOP SCH (09:09)
--- NOTE | 2020-01-08 10:40 | PCM.PN ---
- General Info Date of Service: 01/08/20 Admission Dx/Problem (Free Text): Admission Diagnosis/Problem Admission Diagnosis/Problem Bacteremia Subjective Update: The patient continues to have left-sided chest, shoulder pain. Pain is moderate to severe, worse with movements, touching the area. did not want to try lidoderm patch No associated redness. No cough, no shortness of breath, no nausea or vomiting. No urinary burning. no fever. Functional Status: Reports: Tolerating Diet - Review of Systems General: Denies: Fever Pulmonary: Denies: Shortness of Breath Cardiovascular: Reports: Chest Pain. Denies: Edema Gastrointestinal: Denies: Abdominal Pain Genitourinary: Denies: Dysuria - Patient Data Vitals - Most Recent: Last Vital Signs Temp 99 F 01/08/20 08:00 Pulse 94 01/08/20 08:00 Resp 18 01/08/20 08:00 BP 126/80 01/08/20 08:00 Pulse Ox 99 01/08/20 08:00 Weight - Most Recent: 182 lb 3.2 oz I&O - Last 24 Hours: Intake & Output 01/07/20 01/08/20 01/08/20 22:59 06:59 14:59 Intake Total 660 950 490 Output Total 400 300 Balance 260 650 490 Lab Results Last 24 Hours: Laboratory Results - last 24 hr 01/07/20 01/07/20 Range/Units 14:15 21:30 Urine Color Yellow (YELLOW) Urine Appearance Slightly cloudy (CLEAR) Urine pH 7.5 (5.0-9.0) Ur Specific [place] 1.020 (1.005-1.030) Urine Protein Negative (NEGATIVE) Urine Glucose (UA) Negative (NEGATIVE) Urine Ketones Negative (NEGATIVE) Urine Occult Blood Large H (NEGATIVE) Urine Nitrite Negative (NEGATIVE) Urine Bilirubin Negative (NEGATIVE) Urine Urobilinogen 0.2 (0.2-1.0) mg/dL Ur Leukocyte Esterase Negative (NEGATIVE) Urine RBC 10-20 H /HPF Urine WBC 0-5 (0-5/HPF) /HPF Ur Epithelial Cells Rare (NOT SEEN) /HPF Amorphous Sediment Rare (NOT SEEN) /HPF Urine Bacteria Rare (0-FEW/HPF) /HPF Vancomycin Trough 10.9 (10.0-20.0) ug/mL Dre Results Last 24 Hours: Microbiology 08/10/20 12:35 Aerobic Blood Culture - Preliminary Blood - Venous - Lab Draw NO GROWTH AFTER 1 DAY Anaerobic Blood Culture - Preliminary NO GROWTH AFTER 1 DAY 01/06/20 12:30 Aerobic Blood Culture - Preliminary Blood - Venous NO GROWTH AFTER 1 DAY Anaerobic Blood Culture - Preliminary NO GROWTH AFTER 1 DAY Med Orders - Current: Current Medications Acetaminophen (Tylenol) 650 mg PO Q4H PRN PRN Reason: Pain (Mild 1-3)/fever Last Admin: 01/08/20 08:34 Dose: 650 mg Documented by: Docusate Sodium (Colace) 100 mg PO BID PRN PRN Reason: Constipation Last Admin: 01/07/20 18:15 Dose: 100 mg Documented by: Heparin Sodium (Porcine) (Heparin Sodium) 5,000 units SUBCUT Q8HR [facility] Last Admin: 01/08/20 05:14 Dose: Not Given Documented by: Vancomycin HCl 1.25 gm/ Sodium (Chloride) 250 mls @ 166.667 mls/hr IV Q8H [facility] Last Infusion: 01/08/20 07:09 Dose: Infused Documented by: Ibuprofen (Motrin) 400 mg PO Q6H PRN PRN Reason: Pain (moderate 4-6) Last Admin: 01/08/20 04:15 Dose: 400 mg Documented by: Lidocaine (Lidoderm 5%) 700 mg TOP DAILY [facility] Last Admin: 01/08/20 09:09 Dose: Not Given Documented by: Lorazepam (Ativan) 1 mg PO Q4H PRN PRN Reason: anxiety, withdrawal Last Admin: 01/08/20 08:34 Dose: 1 mg Documented by: Miscellaneous Information (Remove Patch) 1 ea TRDERM BEDTIME [facility] Last Admin: 01/07/20 21:01 Dose: Not Given Documented by: Ondansetron HCl (Zofran Odt) 4 mg PO Q6H PRN PRN Reason: nausea, able to take PO Sodium Chloride (Saline Flush) 10 ml FLUSH ASDIRECTED PRN PRN Reason: Keep Vein Open Last Admin: 01/08/20 05:33 Dose: 10 ml Documented by: Vancomycin HCl (Pharmacy To Dose - Vancomycin) 0 dose .XX ASDIRECTED [facility] Zolpidem Tartrate (Ambien) 5 mg PO BEDTIME PRN PRN Reason: Sleep Last Admin: 01/07/20 20:56 Dose: 5 mg Documented by: Discontinued Medications Vancomycin HCl 1 gm/ Sodium (Chloride) 250 mls @ 166.667 mls/hr IV Q8HR [facility] Last Admin: 01/08/20 00:17 Dose: Not Given Documented by: - Exam General: Alert, Oriented Neck: Supple Lungs: Clear to Auscultation, Normal Respiratory Effort Cardiovascular: Regular Rate, Regular Rhythm GI/Abdominal Exam: Normal Bowel Sounds, Soft, Non-Tender Extremities: No Pedal Edema Skin: Warm, Dry Neurological: No New Focal Deficit Psy/Mental Status: Alert, Normal Affect, Normal Mood Sepsis Event Note - Evaluation Sepsis Screening Result: No Definite Risk - Focused Exam Vital Signs: Vital Signs Temp Pulse Resp BP Pulse Ox 01/08/20 08:00 99 F 94 18 126/80 99 01/08/20 03:05 99.2 F 95 20 113/75 99 01/08/20 00:00 98.2 F 100 20 117/78 98 - Problem List & Annotations (1) Bacteremia SNOMED Code(s): 2511900 Code(s): R78.81 - BACTEREMIA Status: Acute Current Visit: No (2) Methamphetamine abuse SNOMED Code(s): 349604110 Code(s): F15.10 - OTHER STIMULANT ABUSE, UNCOMPLICATED Status: Acute Current Visit: No (3) Opioid abuse SNOMED Code(s): 9051696 Code(s): F11.10 - OPIOID ABUSE, UNCOMPLICATED Status: Acute Current Visit: No (4) UTI (urinary tract infection) SNOMED Code(s): 57067130 Code(s): N39.0 - URINARY TRACT INFECTION, SITE NOT SPECIFIED Status: Acute Current Visit: No - Problem List Review Problem List Initiated/Reviewed/Updated: Yes - My Orders Last 24 Hours: My Active Orders 01/07/20 10:57 Consult to Physician [CONS] Routine 01/07/20 10:58 Notify Provider Consults [RC] ASDIRECTED 01/07/20 12:30 Lidocaine 5% [Lidoderm 5%] 700 mg TOP DAILY 01/07/20 14:15 CULTURE URINE [RM] Routine 01/07/20 21:00 Remove Patch 1 ea TRDERM BEDTIME 01/07/20 22:00 Vancomycin 1.25 gm Sodium Chloride 0.9% [Normal Saline (AdvBag)] 250 ml IV Q8H 01/09/20 05:15 BASIC METABOLIC PANEL,BMP [CHEM] AM CBC WITH AUTO DIFF [HEME] AM 01/09/20 05:30 VANCOMYCIN TROUGH [CHEM] Timed - Plan Plan:: 29-year-old with a history of injected IV use presented with MSSA bacteremia MSSA bacteremia She has a history of penicillin allergy (hives, rash) BCx: 12/28, 12/29 Staph Aureus BCx 01/05: negative Repeat urine culture: pending Started the patient on IV vancomycin called dr. Toledo for ID consult - plan for 2 pm today Left chest, shoulder pain reviewed CT chest 12/29 - no acute findings likely musculoskeletal pain We'll try to avoid narcotics use motrin, tylenol, lidoderm patch, heat/cold History of amphetamine, opiate use no apparent withdrawal symptoms Ativan for anxiety DVT prophylaxis with subcutaneous heparin
--- NOTE | 2020-01-08 14:32 | PCM.DCSUM1 ---
Discharge Summary - Hospital Course Free Text/Narrative:: 29-year-old with a history of injected IV use presented with MSSA bacteremia She was recently hospitalized the end was found to have UTI with MSSA bacteremia. The patient left AGAINST MEDICAL ADVICE after about 36 hours. She was noted to have bacteremia and urine culture positive for MSSA. The patient was lost to return to the hospital for further IV antibiotic treatment MSSA bacteremia She has a history of penicillin allergy (hives, rash) BCx: 12/28, 12/29 Staph Aureus BCx 01/05: negative Repeat urine culture: pending - negative as of now Started the patient on IV vancomycin Obtained telemedicine consult from dr. Toledo for ID consult - plan for IV d aptomycin treatment for 4-6 weeks. The patient does not want to stay in the hospital or swing bed setting but she is promising to come back daily for new IV start and IV daptomycin treatment The dose of daptomycin will be 6 mg/kg, plan for 4-6 weeks treatment she will follow-up with ID in 1 week via telemedicine Left chest, shoulder pain reviewed CT chest 12/29 - no acute findings likely musculoskeletal pain We'll try to avoid narcotics use motrin, tylenol, lidoderm patch, heat/cold Patient states this has resolved by the day of discharge History of amphetamine, opiate use no apparent withdrawal symptoms Diagnosis: Stroke: No - Discharge Data Discharge Date: 01/08/20 Discharge Disposition: Home, Self-Care 01 Condition: Good - Referral to Home Health Primary Care Physician: PCP None - Discharge Diagnosis/Problem(s) (1) Bacteremia SNOMED Code(s): 3212110 ICD Code: R78.81 - BACTEREMIA Status: Acute Current Visit: No (2) Methamphetamine abuse SNOMED Code(s): 048254600 ICD Code: F15.10 - OTHER STIMULANT ABUSE, UNCOMPLICATED Status: Acute Current Visit: No (3) Opioid abuse SNOMED Code(s): 3195192 ICD Code: F11.10 - OPIOID ABUSE, UNCOMPLICATED Status: Acute Current Visit: No (4) UTI (urinary tract infection) SNOMED Code(s): 75940578 ICD Code: N39.0 - URINARY TRACT INFECTION, SITE NOT SPECIFIED Status: Acute Current Visit: No - Patient Summary/Data Consults: Consultations 01/07/20 10:57 Consult to Physician [CONS] Routine - Patient Instructions Diet: Usual Diet as Tolerated Activity: As Tolerated - Discharge Plan *PRESCRIPTION DRUG MONITORING PROGRAM REVIEWED*: Not Applicable *COPY OF PRESCRIPTION DRUG MONITORING REPORT IN PATIENT YASMEEN: Not Applicable Prescriptions/Med Rec: DAPTOmycin [Cubicin] 500 mg IV DAILY #7 vial Home Medications: Home Meds Acetaminophen [Tylenol] 650 mg PO Q4H PRN tablet 01/08/20 [Rx] DAPTOmycin [Cubicin] 500 mg IV DAILY #7 vial 01/08/20 [Rx] Oxygen Therapy Mode: Room Air Patient Handouts: Daptomycin injection - Discharge Summary/Plan Comment DC Time >30 min.: No - General Info Date of Service: 01/08/20 Functional Status: Reports: Tolerating Diet - Review of Systems General: Denies: Fever, Weakness Pulmonary: Denies: Shortness of Breath Cardiovascular: Denies: Chest Pain, Edema Gastrointestinal: Denies: Abdominal Pain - Patient Data Vitals - Most Recent: Last Vital Signs Temp 99 F 01/08/20 08:00 Pulse 94 01/08/20 08:00 Resp 18 01/08/20 08:00 BP 126/80 01/08/20 08:00 Pulse Ox 97 01/08/20 11:00 Weight - Most Recent: 182 lb 3.2 oz I&O - Last 24 hours: Intake & Output 01/07/20 01/08/20 01/08/20 22:59 06:59 14:59 Intake Total 660 950 490 Output Total 400 300 Balance 260 650 490 Lab Results - Last 24 hrs: Laboratory Results - last 24 hr 01/07/20 01/07/20 Range/Units 14:15 21:30 Urine Color Yellow (YELLOW) Urine Appearance Slightly cloudy (CLEAR) Urine pH 7.5 (5.0-9.0) Ur Specific [place] 1.020 (1.005-1.030) Urine Protein Negative (NEGATIVE) Urine Glucose (UA) Negative (NEGATIVE) Urine Ketones Negative (NEGATIVE) Urine Occult Blood Large H (NEGATIVE) Urine Nitrite Negative (NEGATIVE) Urine Bilirubin Negative (NEGATIVE) Urine Urobilinogen 0.2 (0.2-1.0) mg/dL Ur Leukocyte Esterase Negative (NEGATIVE) Urine RBC 10-20 H /HPF Urine WBC 0-5 (0-5/HPF) /HPF Ur Epithelial Cells Rare (NOT SEEN) /HPF Amorphous Sediment Rare (NOT SEEN) /HPF Urine Bacteria Rare (0-FEW/HPF) /HPF Vancomycin Trough 10.9 (10.0-20.0) ug/mL [facility] Results - Last 24 hrs: Microbiology 01/06/20 12:35 Aerobic Blood Culture - Preliminary Blood - Venous - Lab Draw NO GROWTH AFTER 2 DAYS Anaerobic Blood Culture - Preliminary NO GROWTH AFTER 2 DAYS 01/06/20 12:30 Aerobic Blood Culture - Preliminary Blood - Venous NO GROWTH AFTER 2 DAYS Anaerobic Blood Culture - Preliminary NO GROWTH AFTER 2 DAYS 01/07/20 14:15 Urine Culture - Preliminary Urine, Clean Catch MIXED POSITIVE JONO DAY 1 Med Orders - Current: Current Medications Acetaminophen (Tylenol) 650 mg PO Q4H PRN PRN Reason: Pain (Mild 1-3)/fever Last Admin: 01/08/20 12:40 Dose: 650 mg Documented by: Docusate Sodium (Colace) 100 mg PO BID PRN PRN Reason: Constipation Last Admin: 01/07/20 18:15 Dose: 100 mg Documented by: Heparin Sodium (Porcine) (Heparin Sodium) 5,000 units SUBCUT Q8HR [facility] Last Admin: 01/08/20 13:46 Dose: Not Given Documented by: Vancomycin HCl 1.25 gm/ Sodium (Chloride) 250 mls @ 166.667 mls/hr IV Q8H [facility] Last Infusion: 01/08/20 07:09 Dose: Infused Documented by: Ibuprofen (Motrin) 400 mg PO Q6H PRN PRN Reason: Pain (moderate 4-6) Last Admin: 01/08/20 12:41 Dose: 400 mg Documented by: Lidocaine (Lidoderm 5%) 700 mg TOP DAILY [facility] Last Admin: 01/08/20 09:09 Dose: Not Given Documented by: Lorazepam (Ativan) 1 mg PO Q4H PRN PRN Reason: anxiety, withdrawal Last Admin: 01/08/20 12:41 Dose: 1 mg Documented by: Miscellaneous Information (Remove Patch) 1 ea TRDERM BEDTIME [facility] Last Admin: 01/07/20 21:01 Dose: Not Given Documented by: Ondansetron HCl (Zofran Odt) 4 mg PO Q6H PRN PRN Reason: nausea, able to take PO Sodium Chloride (Saline Flush) 10 ml FLUSH ASDIRECTED PRN PRN Reason: Keep Vein Open Last Admin: 01/08/20 05:33 Dose: 10 ml Documented by: Vancomycin HCl (Pharmacy To Dose - Vancomycin) 0 dose .XX ASDIRECTED [facility] Zolpidem Tartrate (Ambien) 5 mg PO BEDTIME PRN PRN Reason: Sleep Last Admin: 01/07/20 20:56 Dose: 5 mg Documented by: Discontinued Medications Vancomycin HCl 1 gm/ Sodium (Chloride) 250 mls @ 166.667 mls/hr IV Q8HR [facility] Last Admin: 01/08/20 00:17 Dose: Not Given Documented by: - Exam General: Reports: Alert, Oriented Neck: Reports: Supple Lungs: Reports: Clear to Auscultation, Normal Respiratory Effort Cardiovascular: Reports: Regular Rate, Regular Rhythm Extremities: No Pedal Edema
== END 2020-01-08 15:50 | disposition home or self-care (01) | DRG 872 ==
LOC: DL.MS 11:31 → UNDOADMIN 11:31 → EEVIPCON 11:36 → DL.MS 11:36
PROVIDERS: ADMIT Internal Medicine; ATTEND Internal Medicine
DX: R78.81 Bacteremia (principal); N39.0 Urinary tract infection, site not specified; B95.61 Methicillin susceptible Staphylococcus aureus infection as the cause of diseases classified elsewhere; R07.89 Other chest pain; M25.512 Pain in left shoulder; F11.10 Opioid abuse, uncomplicated; F15.10 Other stimulant abuse, uncomplicated; I10 Essential (primary) hypertension; F41.9 Anxiety disorder, unspecified; Z88.0 Allergy status to penicillin; Z28.82 Immunization not carried out because of caregiver refusal
CPT/HCPCS: 36415; 80048; 80202; 81001; 82550; 85025; 87040; 87086; 93306; A9270-GY; J1644; J3370; J7050

== ENCOUNTER 2021-01-02 11:44 | Emergency (ER) | payer MEDICAID ==
[2021-01-02 12:00] VITALS: PULSE 104
[2021-01-02] MEDS ORDERED: Sodium Chloride 0.9% 10 ML Syringe FLUSH PRN (12:21)
[2021-01-02] MEDS ORDERED: hydrOXYzine HCl 25 MG Tab PO ONE (12:22)
[2021-01-02] MEDS ORDERED: cloNIDine 0.1 MG Tab PO ONE (12:22)
[2021-01-02] MEDS ORDERED: Sodium Chloride 0.9% 1,000 ML IV ONE ×3 (12:22→16:11)
[2021-01-02] MEDS ORDERED: Dicyclomine 20 MG/2 ML SDV IM ONE (12:22)
[2021-01-02] MEDS ORDERED: Cyclobenzaprine 10 MG Tab PO ONE (12:23)
[2021-01-02 12:47] VITALS: BP 124/84
[2021-01-02 12:55] LABS: ANION GAP 16.6 mEq/L (7-13); CHLORIDE,CL 105 mmol/L (98-107); SODIUM,NA 141 mmol/L (136-145)
--- NOTE | 2021-01-02 17:27 | EDM.PDOCBH ---
Scribed by Belia Vines 01/02/21 1242 for Dave Connelly MD ED HPI GENERAL MEDICAL PROBLEM - General Chief Complaint: Drug or Alcohol Abuse Stated Complaint: HEROIN WITHDRAWAL Time Seen by Provider: 01/02/21 12:17 Source of Information: Reports: Patient, RN, RN Notes Reviewed History Limitations: Reports: No Limitations - History of Present Illness INITIAL COMMENTS - FREE TEXT/NARRATIVE: Patient presents to ED by POV stating that she was in [place] and on Methadone for heroin withdrawal, had to leave as had no where to go. She states her brother picked her up and has been without the methadone for 3 days. She is complaining of body hurting all over, states uncomfortable, rates it 8/10, states took tylenol 1000 mg at 1130. Onset: Gradual Duration: Getting Worse Quality: Reports: Ache Severity: Moderate Improves with: Reports: None Worsens with: Reports: None Associated Symptoms: Reports: No Other Symptoms Generalized Pain Score (Numeric/FACES): 8 - Related Data Allergies Allergy/AdvReac Type Severity Reaction Status Date / Time amoxicillin [Amoxicillin] Allergy Unknown Rash Verified 01/02/21 12:00 penicillin G Allergy Unknown Hives Verified 01/02/21 12:00 Home Meds: Home Meds Acetaminophen [Tylenol] 1,000 mg PO Q4H PRN 01/02/21 [History] Past Medical History - Past Health History Medical/Surgical History: Denies Medical/Surgical History HEENT History: Reports: None Cardiovascular History: Reports: Hypertension Other Cardiovascular History: hypertension with last Respiratory History: Reports: None Gastrointestinal History: Reports: None Genitourinary History: Reports: STD Other Genitourinary History: genital herpes [employer]ILDING [employer]ARD History: Reports: Other [employer]ING [employer] History: EDC: 05/08/2016 by a 22 week Ultrasound on 01/07/2016 EGA: 39 weeks gestation. 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 - Infectious Disease History Infectious Disease History: Reports: Herpes - Past Surgical History Head Surgeries/Procedures: Reports: None Female Surgical History: Reports: Section - Past Imaging History Past Imaging History: Reports: Ultrasound (01/07/2016 22 week Ultrasound EDC: 05/08/2016) Social & Family History - Family History Family Medical History: No Pertinent Family History HEENT: Reports: None Cardiac: Reports: Aneurysm, Heart Valve Replacement, Hypertension Respiratory: Reports: None GI: Reports: None : Reports: None OBGYN: Reports: None Musculoskeletal: Reports: None Neurological: Reports: CVA Psychiatric: Reports: None Endocrine/Metabolic: Reports: Diabetes, type II Hematologic: Reports: None Immunologic: Reports: None Dermatologic: Reports: None Oncologic: Reports: None - Tobacco Use Tobacco Use Status *Q: Current Every Day Tobacco User Years of Tobacco use: 17 Packs/Tins Daily: 0.5 Second Hand Smoke Exposure: No - Caffeine Use Caffeine Use: Reports: Coffee - Recreational Drug Use Recreational Drug Use: No - Living Situation & Occupation Living situation: Reports: Other Occupation: Unemployed ED ROS GENERAL - Review of Systems Review Of Systems: Comprehensive ROS is negative, except as noted in HPI. ED EXAM, BEHAVIORAL HEALTH - Physical Exam Exam: See Below Exam Limited By: No Limitations General Appearance: Alert, WD/WN, No Apparent Distress, Anxious Eye Exam: Bilateral Eye: EOMI, Normal Inspection, PERRL Ears: Normal External Exam, Hearing Grossly Normal Nose: Normal Inspection, Normal Mucosa, No Blood Throat/Mouth: Normal Lips, Normal Voice, No Airway Compromise, Other (dry mouth) Head: Atraumatic, Normocephalic Neck: Normal Inspection, Non-Tender, Full Range of Motion Respiratory/Chest: No Respiratory Distress, Lungs Clear, Normal Breath Sounds, No Accessory Muscle Use, Chest Non-Tender Cardiovascular: Regular Rate, Rhythm, No Edema, Tachycardia GI/Abdominal: Normal Bowel Sounds, Soft, Non-Tender, No Distention (Female) Exam: Deferred Rectal (Female) Exam: Deferred Back Exam: Normal Inspection, Full Range of Motion, NT Extremities: Normal Inspection, Normal Range of Motion, Non-Tender, Normal Capillary Refill, No Pedal Edema Neurological: Alert, CN II-XII Intact, Normal Cognition, Normal Gait, No Motor/S ensory Deficits, Oriented x 3 Psychiatric: Alert, Normal Affect, Restless, Other (Anxious) Skin Exam: Warm, Dry, Intact, Normal color, No rash. No: Ecchymosis, Jaundice, Needle ro, Petechiae COURSE, BEHAVIORAL HEALTH COMP - Course Vital Signs: Last Vital Signs Temp 96.3 F L 01/02/21 11:55 Pulse 104 H 01/02/21 11:55 Resp 16 01/02/21 11:55 BP 124/84 01/02/21 12:46 Pulse Ox 100 01/02/21 11:55 Orders, Labs, Meds: Active Orders 24 hr Category Date Time Status Peripheral IV Care [RC] . DIRECTED Care 01/02/21 12:21 Active DRUG SCREEN URINE BIORAD [URCHEM] Stat Lab 01/02/21 12:21 Ordered HCG QUALITATIVE,URINE [URCHEM] Stat Lab 01/02/21 12:21 Ordered UA RFX TOMAS AND CULT IF INDIC [URIN] Stat Lab 01/02/21 14:53 Ordered Sodium Chloride 0.9% [Saline Flush] Med 01/02/21 12:21 Active 10 ml FLUSH ASDIRECTED PRN Peripheral IV Insertion Adult [OM.PC] Stat Oth 01/02/21 12:21 Ordered Medication Orders Sodium Chloride (Sodium Chloride 0.9% 10 Ml Syringe) 10 ml FLUSH ASDIRECTED PRN PRN Reason: Keep Vein Open Last Admin: 01/02/21 12:54 Dose: 10 ml Documented by: KRISTYN Laboratory Tests 01/02/21 01/02/21 Range/Units 12:31 12:31 WBC 9.1 (5.0-10.0) 10^3/uL RBC 5.16 (4.2-5.4) 10^6/uL Hgb 13.9 D (12.0-16.0) g/dL Hct 40.7 (37.0-47.0) % MCV 78.9 L D (80-100) fL MCH 26.9 L (27.0-34.0) pg MCHC 34.2 (33.0-35.0) g/dL Plt Count 320 D (150-450) 10^3/uL Neut % (Auto) 73.9 (42.2-75.2) % Lymph % (Auto) 19.6 L (20.5-50.1) % Ogle % (Auto) 6.3 (2-8) % Eos % (Auto) 0.0 L (1.0-3.0) % Baso % (Auto) 0.2 (0.0-1.0) % Sodium 141 (136-145) mmol/L Potassium 3.6 (3.5-5.1) mmol/L Chloride 105 (98-107) mmol/L Carbon Dioxide 23 (21-32) mmol/L Anion Gap 16.6 H (7-13) mEq/L BUN 11 (7-18) mg/dL Creatinine 0.81 (0.55-1.02) mg/dL Est Cr Clr Drug Dosing 105.17 mL/min Estimated GFR (MDRD) > 60 BUN/Creatinine Ratio 13.6 (No establ ref range) Glucose 106 H (70-99) mg/dL Calcium 8.8 (8.5-10.1) mg/dL Total Bilirubin 1.3 H (0.2-1.0) mg/dL AST 57 H (15-37) U/L ALT 91 H (14-59) U/L Alkaline Phosphatase 50 (46-116) U/L Total Protein 8.6 H (6.4-8.2) g/dL Albumin 3.9 (3.4-5.0) g/dL Globulin 4.7 Albumin/Globulin Ratio 0.8 Ethyl Alcohol < 3 (0) mg/dL Medications Generic Name Dose Route Start Last Admin Trade Name Shayla PRN Reason Stop Dose Admin Sodium Chloride 10 ml 01/02/21 12:21 01/02/21 12:54 Sodium Chloride 0.9% 10 Ml Syringe FLUSH 10 ml ASDIRECTED PRN Administration Keep Vein Open Discontinued Medications Generic Name Dose Route Start Last Admin Trade Name Shayla PRN Reason Stop Dose Admin Clonidine HCl 0.1 mg 01/02/21 12:22 01/02/21 12:46 Clonidine 0.1 Mg Tab PO 01/02/21 12:23 0.1 mg ONETIME ONE Administration Cyclobenzaprine HCl 10 mg 01/02/21 12:23 01/02/21 12:46 Cyclobenzaprine 10 Mg Tab PO 01/02/21 12:24 10 mg ONETIME ONE Administration Dicyclomine HCl 20 mg 01/02/21 12:22 01/02/21 12:45 Dicyclomine 20 Mg/2 Ml Sdv IM 01/02/21 12:23 20 mg ONETIME ONE Administration Hydroxyzine HCl 50 mg 01/02/21 12:22 01/02/21 12:46 Hydroxyzine Hcl 25 Mg Tab PO 01/02/21 12:23 50 mg ONETIME ONE Administration Sodium Chloride 1,000 mls @ 999 mls/hr 01/02/21 12:22 01/02/21 12:54 Normal Saline IV 01/02/21 13:22 999 mls/hr .BOLUS ONE Administration Sodium Chloride 1,000 mls @ 999 mls/hr 01/02/21 14:29 01/02/21 15:23 Normal Saline IV 01/02/21 15:29 999 mls/hr .BOLUS ONE Administration Sodium Chloride 1,000 mls @ 999 mls/hr 01/02/21 16:11 01/02/21 16:22 Normal Saline IV 01/02/21 17:11 999 mls/hr .BOLUS ONE Administration Discharge vs Psych Eval/Treatment:: 01/02/21 16:16 Pt feels improved. Not suicidal. Medically stable to be d/c'd home. Departure - Departure Time of Disposition: 17:27 Disposition: Home, Self-Care 01 Condition: Fair Clinical Impression: Methadone withdrawal - Discharge Information *PRESCRIPTION DRUG MONITORING PROGRAM REVIEWED*: No *COPY OF PRESCRIPTION DRUG MONITORING REPORT IN PATIENT YASMEEN: No Instructions: Opioid Withdrawal Forms: ED Department Discharge Additional Instructions: Rx: Clonidine 0.1mg Rx: Bentyl 20mg Rx: Hydroxyzine 25mg Rx: Methocarbamol 750mg This combination of medications is commonly used to reduce the symptoms of op ioid withdrawals. Do not drive while taking these medications as they may cause drowsiness. [facility] you need additional help with substance treatment or counseling. Sepsis Event Note (ED) - Evaluation Sepsis Screening Result: No Definite Risk - Focused Exam Vital Signs: Vital Signs Temp Pulse Resp BP BP Pulse Ox 01/02/21 12:46 124/84 01/02/21 11:55 96.3 F L 104 H 16 122/90 100 - My Orders Last 24 Hours: My Active Orders 01/02/21 12:21 Peripheral IV Care [RC] . DIRECTED DRUG SCREEN URINE BIORAD [URCHEM] Stat HCG QUALITATIVE,URINE [URCHEM] Stat Sodium Chloride 0.9% [Saline Flush] 10 ml FLUSH ASDIRECTED PRN Peripheral IV Insertion Adult [OM.PC] Stat 01/02/21 14:53 UA RFX TOMAS AND CULT IF INDIC [URIN] Stat - Assessment/Plan Last 24 Hours: My Active Orders 01/02/21 12:21 Peripheral IV Care [RC] . DIRECTED DRUG SCREEN URINE BIORAD [URCHEM] Stat HCG QUALITATIVE,URINE [URCHEM] Stat Sodium Chloride 0.9% [Saline Flush] 10 ml FLUSH ASDIRECTED PRN Peripheral IV Insertion Adult [OM.PC] Stat 01/02/21 14:53 UA RFX TOMAS AND CULT IF INDIC [URIN] Stat I have read and agree with the documentation that has been completed regarding this visit. By signing this record, I attest that the documentation was completed in my physical presence and is an accurate record of the encounter.
[2021-01-02 17:51] LABS: AMPHETAMINES,URINE POSITIVE (NEGATIVE); BARBITURATES,URINE NEGATIVE (NEGATIVE); BENZODIAZEPINE,URINE NEGATIVE (NEGATIVE); MDMA (ECSTASY), URINE POSITIVE (NEGATIVE); METHADONE,URINE POSITIVE (NEGATIVE); METHAMPHETAMINES,URINE POSITIVE (NEGATIVE); OPIATES,URINE NEGATIVE (NEGATIVE); OXYCODONE,URINE NEGATIVE (NEGATIVE); PHENCYCLIDINE,URINE NEGATIVE (NEGATIVE); TCA,URINE POSITIVE (NEGATIVE)
== END 2021-01-02 17:40 | disposition home or self-care (01) ==
LOC: DL.ED 11:44
DX: F11.23 Opioid dependence with withdrawal (principal); I10 Essential (primary) hypertension; Z88.0 Allergy status to penicillin; Z72.0 Tobacco use
CPT/HCPCS: 36415; 80053; 80305; 80307; 81003; 81025; 85025; 96372; 99284; A9270; J0500; J7030